=== PATIENT | female | born 1995 | race Caucasian/White ===

== ENCOUNTER → 2018-01-06 11:38 | Outpatient (CLI) | payer MEDICAID, SELFPAY ==
[2018-01-11 12:07] LABS: AFP MoM Value 0.95 (.); AFP Value-EIA 38.2 ng/mL (.); Comment Report (.); DIA MoM Value 1.74 (.); DIA Value-EIA 280.83 pg/mL (.); DSR (By Age) 1060 (.); DSR (Second Trimester) 1668 (.); Gestational Age 17.9 WEEKS (.); Insulin Dep Diabetes No (.); Maternal Age At EDD 24.3 yr (.); hCG MoM 1.08 (.); hCG Value 28579 mIU/mL (.)
== END ==
PROVIDERS: PCP Family Medicine; Visit Provider Obstetrics & Gynecology
DX: Z36.9 Encounter for antenatal screening, unspecified (principal)
CPT/HCPCS: 36415; 82105; 82677; 84702; 86336

== ENCOUNTER → 2018-02-03 11:50 | Outpatient (CLI) | payer MEDICAID, SELFPAY ==
[2018-02-03 12:19] LABS: Absolute Lymphocyte Count 2.08 X10^3/ul (0.83-4.51); Absolute Neutrophil Count 10.6 X10^3/uL (2.0-7.7); Basophil# 0.02 X10^3/uL; Basophil% 0.1 % (0-1); Eosinophil# 0.11 X10^3/uL; Eosinophils% 0.8 % (0-5); Hematocrit 37.1 % (37-47); Hemoglobin 12.1 g/dl (12.0-15.0); Lymphocyte # 2.08 X10^3/ul (4.0); Lymphocyte % 14.7 % (19-41); Mean Corp Hgb Conc 32.6 g/gl (32-36); Mean Corpuscular Hgb 28.7 pg (27.0-32.0); Mean Corpuscular Volume 87.9 fL (81-99); Mean Platelet Vol. 10.8 fl (6.2-12.0); Monocyte% 7.8 % (0-10); Neutrophil # 10.59 X10^3/uL (2.7-7.7); Neutrophil % 74.7 % (47-70); Platelet Count 210 K/mm3 (150-450); RBC Distribution Width CV 13.8 % (11.6-14.6); RBC Distribution Width SD 42.8 fl (35.1-43.9); Red Blood Count 4.22 M/mm3 (4.2-5.4); White Blood Count 14.2 K/mm3 (4.4-11.0)
[2018-02-03 12:20] LABS: POSITIVE COUNT NO; POSITIVE DIFFERENTIAL NO; POSITIVE MORPHOLOGY NO
[2018-02-03 13:32] LABS: HIV - WCH Non-Reactive (Nonreactive); Rubella IgG 34.6 IU/mL
[2018-02-03 18:13] LABS: Amphetamine Urine VISTA NEGATIVE (<1000 ng/mL); Barbiturate Urine VISTA NEGATIVE (< 200 ng/mL); Benzodiazepine Urine VISTA NEGATIVE (< 200 ng/mL); Cocaine Urine VISTA NEGATIVE (< 300 ng/mL); Ecstacy Urine VISTA NEGATIVE (< 500 ng/mL); Methadone Urine VISTA NEGATIVE (< 300 ng/mL); PCP Urine VISTA NEGATIVE (< 25 ng/mL); THC Urine VISTA NEGATIVE (< 50 ng/mL); Vista UDS pH Range 5
[2018-02-05 04:13] LABS: Rapid Plasmin Reagin (RPR) NONREACTIVE (NONREACTIVE)
[2018-02-05 15:15] LABS: HEPATITIS B SURFACE AG Negative (Negative)
== END ==
PROVIDERS: Family Provider Family Medicine; PCP Family Medicine; Referring Provider Obstetrics & Gynecology; Visit Provider Obstetrics & Gynecology
DX: O34.219 Maternal care for unspecified type scar from previous cesarean delivery (principal); O99.340 Other mental disorders complicating pregnancy, unspecified trimester; F12.90 Cannabis use, unspecified, uncomplicated; O99.330 Smoking (tobacco) complicating pregnancy, unspecified trimester; F31.9 Bipolar disorder, unspecified
CPT/HCPCS: 36415; 80307; 85025; 86592; 86703; 86762; 86850; 86900; 87340

== ENCOUNTER → 2018-03-08 10:16 | Outpatient (CLI) | payer MEDICAID, SELFPAY ==
[2018-03-08 10:00] VITALS: BMI 31.2
[2018-03-08 11:08] LABS: Absolute Lymphocyte Count 1.73 X10^3/ul (0.83-4.51); Absolute Neutrophil Count 10.2 X10^3/uL (2.0-7.7); Basophil# 0.03 X10^3/uL; Basophil% 0.2 % (0-1); Eosinophil# 0.13 X10^3/uL; Hematocrit 34.8 % (37-47); Hemoglobin 11.4 g/dl (12.0-15.0); Lymphocyte # 1.73 X10^3/ul (4.0); Lymphocyte % 13.1 % (19-41); Mean Corp Hgb Conc 32.8 g/gl (32-36); Mean Corpuscular Hgb 28.5 pg (27.0-32.0); Mean Platelet Vol. 10.2 fl (6.2-12.0); Monocyte% 6.8 % (0-10); Neutrophil # 10.17 X10^3/uL (2.7-7.7); Neutrophil % 77.2 % (47-70); Platelet Count 176 K/mm3 (150-450); RBC Distribution Width CV 14.4 % (11.6-14.6); RBC Distribution Width SD 45.6 fl (35.1-43.9); White Blood Count 13.2 K/mm3 (4.4-11.0)
[2018-03-08 11:14] LABS: POSITIVE COUNT NO; POSITIVE DIFFERENTIAL NO; POSITIVE MORPHOLOGY NO
[2018-03-08 11:17] LABS: Glucose Challenge Gest 1H 50g 125 mg/dL (70-140)
== END ==
PROVIDERS: Nurse Practitioner Women's Health; Family Provider Family Medicine; PCP Family Medicine; Referring Provider Obstetrics & Gynecology; Visit Provider Obstetrics & Gynecology
DX: Z34.90 Encounter for supervision of normal pregnancy, unspecified, unspecified trimester (principal)
CPT/HCPCS: 36415; 82950; 85025; 87086; 87088

== ENCOUNTER → 2018-04-01 17:47 | Outpatient (CLI) | payer MEDICAID, SELFPAY ==
[2018-04-01 08:32] VITALS: BMI 31.2
[2018-04-01 18:08] LABS: Amphetamine Urine VISTA NEGATIVE (<1000 ng/mL); Barbiturate Urine VISTA NEGATIVE (< 200 ng/mL); Benzodiazepine Urine VISTA NEGATIVE (< 200 ng/mL); Cocaine Urine VISTA NEGATIVE (< 300 ng/mL); Ecstacy Urine VISTA NEGATIVE (< 500 ng/mL); Methadone Urine VISTA NEGATIVE (< 300 ng/mL); PCP Urine VISTA NEGATIVE (< 25 ng/mL); THC Urine VISTA NEGATIVE (< 50 ng/mL); Vista UDS pH Range 7
== END ==
PROVIDERS: Family Provider Family Medicine; PCP Family Medicine; Referring Provider Nurse Practitioner Women's Health; Visit Provider Nurse Practitioner Women's Health
DX: F12.90 Cannabis use, unspecified, uncomplicated (principal)
CPT/HCPCS: 80307

== ENCOUNTER 2018-04-15 11:15 | Outpatient (CLI) | payer MEDICAID, SELFPAY ==
[2018-04-01 08:32] VITALS: BMI 31.2
[2018-04-15 11:36] VITALS: BMI 32.0
[2018-04-15 11:37] LABS: ROM Internal Control Test YES-OK TO RESULT pt. (Internal QC)
[2018-04-15 11:57] LABS: ROM Patient Test Negative (Negative)
--- NOTE | 2018-04-22 03:45 | OB.TRI.NOTE ---
- Problem List (1) False labor Status: Acute History of Present Illness Date of Service: 04/15/18 Was patient seen by the physician?: No Reason For Visit: R/O PRE MATURE ROM Date of Service: 04/15/18 History of Present Illness: co ctx and possible lof Allergies acetaminophen [From Percocet] Allergy (Mild, Verified 04/20/18 23:33) Other amoxicillin [From Trimox] Allergy (Mild, Verified 04/20/18 23:33) Other cyclobenzaprine Allergy (Mild, Verified 04/20/18 23:33) Other oxycodone [From Percocet] Allergy (Mild, Verified 04/20/18 23:33) Other Sulfa (Sulfonamide Antibiotics) Allergy (Mild, Verified 04/20/18 23:33) Other - Pertinent Past Medical History Medical History: Past Medical History (Last Reviewed 04/16/18 @ 09:25 by Delma Lord) Anxiety and depression Bipolar disorder Surgical History: Past Surgical History (Last Reviewed 04/16/18 @ 09:25 by Delma Lord) delivery delivered H/O dilation and curettage H/O endoscopy Hx of cholecystectomy Ingrown toenail Laboratory Studies: Laboratory Tests 04/15/18 Range/Units 11:32 Vag Amniotic Fld Detect Negative (Negative) NST - FHR Rate Baby A Baseline: 140 Variability:: Moderate Accelerations:: 15 x 15 Decelerations:: None NST Reactive:: Yes FHR Category:: Category I Uterine Activity:: no regular Impression/Plan false labor dc home labor precautions cat I tracing
== END 2018-04-15 12:25 | disposition home or self-care (01) ==
LOC: WPOUT 11:22 → WP 11:23
PROVIDERS: Family Provider Family Medicine; PCP Family Medicine; Referring Provider Obstetrics & Gynecology; Visit Provider Obstetrics & Gynecology
DX: O47.9 False labor, unspecified (principal); Z90.49 Acquired absence of other specified parts of digestive tract; Z3A.00 Weeks of gestation of pregnancy not specified
CPT/HCPCS: 59025; 59050; 84112; 99218; G0378

== ENCOUNTER → 2018-04-16 12:42 | Outpatient (CLI) | payer MEDICAID, SELFPAY ==
[2018-04-16 09:58] VITALS: BMI 32.0
[2018-04-16 13:21] LABS: Amphetamine Urine VISTA NEGATIVE (<1000 ng/mL); Barbiturate Urine VISTA NEGATIVE (< 200 ng/mL); Benzodiazepine Urine VISTA NEGATIVE (< 200 ng/mL); Cocaine Urine VISTA NEGATIVE (< 300 ng/mL); Ecstacy Urine VISTA NEGATIVE (< 500 ng/mL); Methadone Urine VISTA NEGATIVE (< 300 ng/mL); PCP Urine VISTA NEGATIVE (< 25 ng/mL); THC Urine VISTA NEGATIVE (< 50 ng/mL); Vista UDS pH Range 6
== END ==
PROVIDERS: Family Provider Family Medicine; PCP Family Medicine; Referring Provider Obstetrics & Gynecology; Visit Provider Obstetrics & Gynecology
DX: O09.70 Supervision of high risk pregnancy due to social problems, unspecified trimester (principal); O99.330 Smoking (tobacco) complicating pregnancy, unspecified trimester; F12.90 Cannabis use, unspecified, uncomplicated; Z3A.00 Weeks of gestation of pregnancy not specified
CPT/HCPCS: 80307

== ENCOUNTER 2018-04-20 22:34 | Outpatient (CLI) | payer MEDICAID, SELFPAY ==
[2018-04-16 09:58] VITALS: BMI 32.0
[2018-04-20 23:35] VITALS: BMI 31.7
[2018-04-21 00:05] LABS: Amphetamine Urine VISTA NEGATIVE (<1000 ng/mL); Barbiturate Urine VISTA NEGATIVE (< 200 ng/mL); Benzodiazepine Urine VISTA NEGATIVE (< 200 ng/mL); Cocaine Urine VISTA NEGATIVE (< 300 ng/mL); Ecstacy Urine VISTA NEGATIVE (< 500 ng/mL); Methadone Urine VISTA NEGATIVE (< 300 ng/mL); PCP Urine VISTA NEGATIVE (< 25 ng/mL); THC Urine VISTA NEGATIVE (< 50 ng/mL); Vista UDS pH Range 6
[2018-04-21 00:21] LABS: Hematocrit 32.5 % (37-47); Hemoglobin 10.5 g/dl (12.0-15.0); Mean Corp Hgb Conc 32.3 g/gl (32-36); Mean Corpuscular Volume 86.7 fL (81-99); Mean Platelet Vol. 11.2 fl (6.2-12.0); Platelet Count 149 K/mm3 (150-450); RBC Distribution Width CV 14.9 % (11.6-14.6); RBC Distribution Width SD 46.8 fl (35.1-43.9); Red Blood Count 3.75 M/mm3 (4.2-5.4); White Blood Count 13.9 K/mm3 (4.4-11.0)
[2018-04-21 00:37] LABS: Fibrinogen 472 mg/dl (203-444)
[2018-04-21 00:39] LABS: Differential Indicated MANUAL DIFF; POSITIVE COUNT YES; POSITIVE DIFFERENTIAL NO; POSITIVE MORPHOLOGY YES
--- NOTE | 2018-04-21 00:52 | NURSING ---
Patient states she has been taking tylenol for her headache she has had since Apr 15. She has been evaluated multiple times. She states that she does get relief with tylenol. Dr Schwarz updated on patient medical screening score, BP 90/50, vaginal exam, nudfsyarpg=270, Plt 149, no clonus present. Discharge orders recieved via TOR[facility]. Dr Schwarz ok with patient leaving after being evaluated by ER doctor in [place].
[2018-04-21 01:18] LABS: Lymphocyte 19 % (19-41); Monocyte 13 % (0-10); Neutrophil-Band 1 % (0-5); Neutrophil-Segmented 67 % (47-70); Total Cells Counted 100 (MANUAL DIFF)
[2018-04-21 01:23] LABS: Absolute Lymphocyte Count 3.68 X10^3/ul (0.83-4.51); Absolute Neutrophil Count 9.5 X10^3/uL (2.0-7.7); Anisocytosis RARE; Platelet Estimate ADEQUATE (ADEQ)
[2018-04-21 14:29] LABS: Pathologist Review Reviewed
--- NOTE | 2018-04-22 03:44 | OB.TRI.NOTE ---
- Problem List (1) False labor Status: Acute History of Present Illness Date of Service: 04/20/18 Reason For Visit: RULE OUT LABOR History of Present Illness: co ctx Allergies acetaminophen [From Percocet] Allergy (Mild, Verified 04/20/18 23:33) Other amoxicillin [From Trimox] Allergy (Mild, Verified 04/20/18 23:33) Other cyclobenzaprine Allergy (Mild, Verified 04/20/18 23:33) Other oxycodone [From Percocet] Allergy (Mild, Verified 04/20/18 23:33) Other Sulfa (Sulfonamide Antibiotics) Allergy (Mild, Verified 04/20/18 23:33) Other - Pertinent Past Medical History Medical History: Past Medical History (Last Reviewed 04/16/18 @ 09:25 by Delma Lord) Anxiety and depression Bipolar disorder Surgical History: Past Surgical History (Last Reviewed 04/16/18 @ 09:25 by Delma Lord) delivery delivered H/O dilation and curettage H/O endoscopy Hx of cholecystectomy Ingrown toenail Laboratory Studies: Laboratory Tests 04/20/18 04/20/18 04/20/18 Range/Units 23:20 23:20 23:20 WBC 13.9 H (4.4-11.0) K/mm3 RBC 3.75 L (4.2-5.4) M/mm3 Hgb 10.5 L (12.0-15.0) g/dl Hct 32.5 L (37-47) % MCV 86.7 (81-99) fL MCH 28.0 (27.0-32.0) pg MCHC 32.3 (32-36) g/gl RDW 14.9 H (11.6-14.6) % RDW Differential 46.8 H (35.1-43.9) fl Plt Count 149 L (150-450) K/mm3 MPV 11.2 (6.2-12.0) fl Neut % (Auto) Not Reportable Absolute Neuts (auto) 9.5 H (2.0-7.7) X10^3/uL Absolute Lymphs (auto) 3.68 (0.83-4.51) X10^3/ul Total Counted 100 (MANUAL DIFF) Neutrophils % (Manual) 67 (47-70) % Band Neutrophils % 1 (0-5) % Lymphocytes % (Manual) 19 (19-41) % Monocytes % (Manual) 13 H (0-10) % Diff Path Review Reviewed Platelet Estimate ADEQUATE (ADEQ) Anisocytosis RARE Fibrinogen 472 H (203-444) mg/dl Urine Opiates Screen NEGATIVE (< 300 ng/mL) Urine Methadone Screen NEGATIVE (< 300 ng/mL) Ur Barbiturates Screen NEGATIVE (< 200 ng/mL) Ur Phencyclidine Scrn NEGATIVE (< 25 ng/mL) Ur Amphetamines Screen NEGATIVE (<1000 ng/mL) U Methamphetamin-MDMA NEGATIVE (< 500 ng/mL) U Benzodiazepines Scrn NEGATIVE (< 200 ng/mL) Urine Cocaine Screen NEGATIVE (< 300 ng/mL) U Cannabinoids Screen NEGATIVE (< 50 ng/mL) Ur Drug Screen Comment NST - FHR Rate Baby A Baseline: 140 Variability:: Moderate Accelerations:: 15 x 15 Decelerations:: None NST Reactive:: Yes FHR Category:: Category I Uterine Activity:: irregular ctx Impression/Plan false labor dc home labor precautions cat I tracing
== END 2018-04-21 01:05 | disposition home or self-care (01) ==
LOC: WPOUT 22:42 → WP 22:43
PROVIDERS: Family Provider Family Medicine; PCP Family Medicine; Referring Provider Obstetrics & Gynecology; Visit Provider Obstetrics & Gynecology
DX: O47.9 False labor, unspecified (principal); O34.219 Maternal care for unspecified type scar from previous cesarean delivery; Z3A.00 Weeks of gestation of pregnancy not specified; Z90.49 Acquired absence of other specified parts of digestive tract
CPT/HCPCS: 59025; 59050; 80307; 85025; 85384; 99218; G0378

== ENCOUNTER → 2018-05-03 17:37 | Outpatient (CLI) | payer MEDICAID, SELFPAY ==
[2018-05-03 11:09] VITALS: BMI 32.1
--- OUTSIDE RECORDS SUMMARY | 2018-07-06 05:13 | XMS RPT_ITS ---
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 ng/mL) Not Detected LAB 0764I Buprenorphine (cutoff 5 ng/mL) Not Detected LAB 0765A Norbuprenorphine (cutoff 20 ng/mL) Not Detected LAB 0765B Fentanyl (cutoff 2 ng/mL) Not Detected LAB 0765C Norfentanyl (cutoff 2 ng/mL) Not Detected LAB 0765D Meperidine metabolite (cutoff 50 ng/mL) Not Detected LAB 0765E Tapentadol (cutoff 100 ng/mL) Not Detected LAB 0765F Widoidwhah-s-Rusj (cutoff 200 ng/mL) Not Detected LAB 0765H Methadone (cutoff 150 ng/mL) Not Detected LAB 0765I Propoxyphene (cutoff 300 ng/mL) Not Detected LAB 0766J Tramadol (cutoff 200 ng/mL) Not Detected LAB 0766B Amphetamine (cutoff 100 ng/mL) Not Detected LAB 0766C Methamphetamine (cutoff 400 ng/mL) Not Detected LAB 0766D MDMA-Ecstasy (cutoff 200 ng/mL) Not Detected LAB 0766E MDA (cutoff 200 ng/mL) Not Detected LAB 0766F MDEA-Nicki (cutoff 200 ng/mL) Not Detected LAB A328A Methylphenidate (cutoff 100 ng/mL) Not Detected LAB 0766H Phentermine (cutoff 100 ng/mL) Not Detected LAB 0767J Benzoylecgonine (cutoff 150 ng/mL) Not Detected LAB 0767B Alprazolam (cutoff 40 ng/mL) Not Detected LAB 0767C Rjaff-XW-Fypybrydgl (cutoff 20 ng/mL) Not Detected LAB 0767D Clonazepam (cutoff 20 ng/mL) Not Detected LAB 0767E 7-Aminoclonazepam (cutoff 40 ng/mL) Not Detected LAB 0767F Diazepam (cutoff 50 ng/mL) Not Detected LAB 0767G Nordiazepam (cutoff 50 ng/mL) Not Detected LAB 0767H Oxazepam (cutoff 50 ng/mL) Not Detected LAB 0767I Temazepam (cutoff 50 ng/mL) Not Detected LAB 0768J Lorazepam (cutoff 60 ng/mL) Not Detected LAB 0768A Midazolam (cutoff 20 ng/mL) Not Detected LAB 0768B Zolpidem (cutoff 20 ng/mL) Not Detected LAB 0768D Barbiturates (cutoff 200 ng/mL) Not Detected LAB 0768G Ethyl Glucuronide (cutoff 500 ng/mL) Not Detected LAB 0768H Marijuana Metabolite (cutoff 20 ng/mL) Present LAB 0768I PCP (cutoff 25 ng/mL) Not Detected LAB 0769J Carisoprodol (cutoff 100 ng/mL) Not Detected Result Comment: The carisoprodol immunoassay has cross-reactivity to carisoprodol and meprobamate. LAB 0769A Pain Management Drug Panel See Below Result Comment: Methodology: Qualitative Enzyme Immunoassay and Qualitative Liquid Chromatography-Time of Flight-Mass Spectrometry or Tandem Mass Spectrometry, Quantitative Spectrophotometry The absence of expected drug(s) and/or drug metabolite(s) may indicate non-compliance, inappropriate timing of specimen collection relative to drug administration, poor drug absorption, diluted/adulterated urine, or limitations of testing. The concentration must be greater than or equal to the cutoff to be reported as present. If specific drug concentrations are required, contact the laboratory within two weeks of specimen collection to request quantification by a second analytical technique. Interpretive questions should be directed to the laboratory. Results based on immunoassay detection that do not match clinical expectations should be interpreted with caution. Confirmatory testing by mass spectrometry for immunoassay-based results is available, if ordered within two weeks of specimen collection. Additional charges apply. For medical purposes only; not valid for forensic use. This test was developed and its performance characteristics determined by [employer]. The U.S. Food and Drug Administration has not approved or cleared this test; however, FDA clearance or approval is not currently required for clinical use. The results are not intended to be used as the sole means for clinical diagnosis or patient management decisions. LAB 0831B EER Pain Mgt Drug Panel See Note High Res/EMIT U Result Comment: Access [employer] Enhanced Report using either link below: -Direct access: [email or web address] -Enter Username, Password: [email or web address] Username: [email or web address] Password: [email or web address] Performed by [employer], [address] [place] [id number] [email or web address], Mikey Rodrigues MD - Lab. Director LAB 9038F 20.0-400.0 mg/dL Creatinine, Urine 194.7 Observed: 11/17/2017 Status: F Source: [facility] CULTURE, URINE 2:48 PM [facility] CENTER REPOSITORY ORDERED BY: SHEFALI HENRIQUEZ SOURCE: Urine Clean Catch COLLECTED: 11/17/17 14:48 ANTIBIOTICS AT BON.: RECEIVED : 11/17/17 16:51 Culture, Urine FINAL 11/19/17 10:52 No growth 24 hours NON-INVASIVE Collected: 11/17/2017 Status: F Source: [facility] TESTING FOR 2:26 PM [facility] REPOSITORY TYPE CODE TESTS RESULT OUT OF REFERENCE UNITS RANGE LAB A000B Maternal Weight (Pounds) 160 LAB 0926J Gestational Age (Weeks) 10 LAB A000C Gestational Age (Days) 6 LAB 0843A Report Fetus Gender yes Result Comment: Corrected result; previously reported as yes on 11/17/2017 at 14:26 by V/AUT LAB 0838A Trisomy 21 Low risk LAB 0838B Trisomy 18 Low risk LAB 0838C Trisomy 13 Low risk LAB 0838F Monosomy X Low risk LAB 0883J Low Triploidy/Vanishi risk ng Twin LAB A000D Fetus Gender Female LAB 0843J 10.3 Fraction LAB 0925I Result Low Summary risk Result Comment: This is a screening test, and is NOT diagnostic for the conditions listed in this report. Both false positive and false negative results may occur. Based on maternal age, gestational age, and the analysis of the circulating cell-free DNA, the risk that this fetus has any of the conditions listed in this report is LOW. If clinical findings conflict with these test results, appropriate clinical follow-up should be performed. This may include genetic counseling, ultrasound, amniocentesis, CVS or other testing as recommended by the patient's healthcare provider. TEST INFORMATION: Non-Invasive Testing for Aneuploidy (Powered by [employer]) with or without Microdeletions METHODOLOGY: DNA isolated from the maternal blood, which contains placental DNA, is amplified at 13,300+ loci using a targeted PCR assay and sequenced using a high-throughput sequencer. Sequence data are analyzed using [employer] software to estimate the copy number and identify whole chromosome abnormalities for chromosomes 13, 18, 21, X, and Y as well as sex. Barring QC failures and fractions below the performance limits of the algorithm, the minimum confidence threshold is 0.98 for a high risk call. For both low risk and high risk calls, the majority of specimens will have a confidence of >0.99 across all regions tested. If a sample fails to meet the quality threshold, no result will be reported for one or more chromosomes. Microdeletions: An additional 6,600+ loci are amplified to estimate the copy numbers of chromosomal regions attributed to 22q11.2, Prader-Willi, Angelman, Cri-du-chat, and 1p36 deletion syndromes. For any of the microdeletions, the minimum confidence threshold is 0.95 for a High Risk call. Under specific circumstances, the algorithm may return a result of unchanged which is equivalent to the population frequency of that microdeletion. SENSITIVITY AND SPECIFICITY: For combined autosomal aneuploidies and Zayas's syndrome, sensitivity and specificity are >99 percent. For combined microdeletions, sensitivity is >99 percent, specificity is >94 percent. sex has a sensitivity and specificity of >99 percent. Sex chromosome trisomies, if identified, will be reported with a specificity of 98 percent. DISCLAIMER: Risks for aneuploidy are calculated based on maternal age, gestational age and test results. Risks for microdeletions are based on population frequency and test results. This test will not identify all deletions associated with each disorder. Ability to detect deletions will be based on size and location. Findings of unknown significance will not be reported. Cases with evidence of and/or placental mosaicism will not be reported. As this assay is a screening test and not diagnostic, false positive and false negatives can occur. Positive test results need diagnostic confirmation by alternative testing methods. Negative results do not fully exclude the diagnosis of any of the above syndromes. False positive and false negative results may be due to placental, or maternal mosaicism, small imbalances, point mutations, gene inactivation, haploblocks, or other genetic/epigenetic mechanisms. Other potential sources of error include, but are not limited to, DNA sample contamination or degradation, limitations of current diagnostic techniques, misidentification of samples, or other factors that may interfere with correct interpretation of the analysis. This test has the potential to uncover consanguinity in the family. This test is not intended to identify pregnancies at risk for open neural tube defects. This test was developed and its performance characteristics determined by [employer]. The U.S. Food and Drug Administration has not approved or cleared this test; however, FDA clearance or approval is not currently required for clinical use. The results are not intended to be used as the sole means for clinical diagnosis or patient management decisions. SOFTWARE VERSION: [employer] 2.2 ABBREVIATIONS: T21 (trisomy 21); T18 (trisomy 18); T13 (trisomy 13); Trip (triploidy or vanishing twin); 45,X (monosomy X); XXX (trisomy X) ; XXY (Klinefelter syndrome); XYY (XYY syndrome); 22q (22q11.2 deletion syndrome); 1p36 (1p36 deletion syndrome); (Angelman syndrome); 5p- (Cri-du-chat syndrome); PWS (Prader-Willi syndrome) LAB [facility] EER Non-Invasive , Aneuploidy See Note Result Comment: Access [employer] Enhanced Report using either link below: -Direct access: [email or web address] -Enter Username, Password: [email or web address] Username: [email or web address] Password: [email or web address] This result has been reviewed and approved by Grace Kebede MD, PhD, FACMG. Performed by [facility], [address] [place] [id number] [email or web address], Mikey Rodrigues MD - Lab. Director CODING SUMMARY Observed: 11/10/2017 Status: F Source: [facility] 12:11 PM HOSPITAL REPOSITORY CODING DATE: 11/10/2017 [facility] STATUS: Home PAYOR: Medicaid HMO ADMIT DX: REASON FOR VISIT DX: M54.9 Dorsalgia, unspecified FINAL DX: PRINCIPAL: O9A.211 Injury, poisoning and certain other consequences of external causes complicating , first trimester SECONDARY: S29.012A Strain of muscle and tendon of back wall of thorax, initial encounter Z3A.01 Less than 8 weeks gestation of PROCEDURES DOCTOR NAME DATE NOTE: The code number assigned matches the documented diagnosis and / or procedure in the patient's chart. However, the narrative phrase printed from the coding software may appear abbreviated, or result in slightly different terminology. Coded By: Estefania Escobedo Date Saved: 11/10/2017 12:11 pm CODING SUMMARY Observed: 11/10/2017 Status: F Source: [facility] 12:10 PM HOSPITAL REPOSITORY CODING DATE: 11/10/2017 [facility] STATUS: Home PAYOR: Medicaid HMO ADMIT DX: REASON FOR VISIT DX: M54.9 Dorsalgia, unspecified FINAL DX: PRINCIPAL: O9A.211 Injury, poisoning and certain other consequences of external causes complicating , first trimester SECONDARY: S29.012A Strain of muscle and tendon of back wall of thorax, initial encounter Z3A.01 Less than 8 weeks gestation of PROCEDURES DOCTOR NAME DATE NOTE: The code number assigned matches the documented diagnosis and / or procedure in the patient's chart. However, the narrative phrase printed from the coding software may appear abbreviated, or result in slightly different terminology. Coded By: Estefania Escobedo Date Saved: 11/10/2017 12:10 pm CODING SUMMARY Observed: 10/28/2017 Status: F Source: [facility] 1:44 PM HOSPITAL REPOSITORY CODING DATE: 10/28/2017 [facility] STATUS: Home PAYOR: Medicaid HMO ADMIT DX: REASON FOR VISIT DX: O36.80X0 with inconclusive viability, not applicable or unspecified FINAL DX: PRINCIPAL: O36.80X0 with inconclusive viability, not applicable or unspecified SECONDARY: Z87.59 Personal history of other complications of , childbirth and the puerperium PROCEDURES DOCTOR NAME DATE NOTE: The code number assigned matches the documented diagnosis and / or procedure in the patient's chart. However, the narrative phrase printed from the coding software may appear abbreviated, or result in slightly different terminology. Coded By: Pam Wesley Date Saved: 10/28/2017 01:44 pm PROVIDER ORDERS Observed: 10/22/2017 Status: P Source: [facility] 11:59 PM HOSPITAL REPOSITORY [id number] US 1ST Observed: 10/22/2017 Status: F Source: [facility] 10:13 AM HOSPITAL REPOSITORY ULTRASOUND FIRST TRIMESTER CLINICAL DATA: evaluation ultrasound study was performed with transabdominal and transvaginal imaging. The maternal uterus measures 13.7 x 8.6 x 5.7 cm in greatest longitudinal, transverse and AP dimensions. Within the endometrial canal there is a gestational sac containing yolk sac and pole. The findings are compatible with a single live intrauterine gestation approximately 7 weeks 1 day age according to crown-rump length and 6 weeks 3 days age according to gestational sac size. cardiac motion is identified, approximately 136 beats per minute. There is noted a small sonolucency measuring 0.6 x 0.5 x 0.4 cm within the maternal cervical canal, compatible with a Nabothian cyst. Views of the maternal adnexal regions demonstrate 2.8 x 2.6 x 2.3 cm sonolucency in the right adnexal region compatible with a corpus luteal cyst. IMPRESSION: 1. FINDINGS COMPATIBLE WITH A SINGLE LIVE INTRAUTERINE GESTATION APPROXIMATELY 7 WEEKS 1 DAY AGE ACCORDING TO CROWN-RUMP LENGTH AND 6 WEEKS 3 DAYS AGE ACCORDING TO GESTATIONAL SAC SIZE. 2. FINDINGS COMPATIBLE WITH A CORPUS LUTEAL CYST IN THE MATERNAL RIGHT ADNEXAL REGION. 3. SMALL NABOTHIAN CYST WITHIN THE MATERNAL CERVICAL CANAL. Nestor Mario MD JOB #: [id number] bk Final Dictated by: Fabiano HIRSCH, Nestor Connors Dictated DT/TM: 10/22/17 12:44 Signed (Electronic Signature): Fabiano HIRSCH, Nestor Connors 10/22/17 1:56 pm Technologist: SHRUTI FELIX PATIENT EDUCATION Observed: 10/20/2017 Status: C Source: [facility] NOTE 5:01 PM HOSPITAL REPOSITORY [employer] Obstetrics and Gynecology Back Pain in Back pain during is common. Back pain may be caused by several factors that are related to changes during your . Follow these instructions at home: Managing pain, stiffness, and swelling ? If directed, apply ice for sudden (acute) back pain. ? Put ice in a plastic bag. ? Place a towel between your skin and the bag. ? Leave the ice on for 20 minutes, 2?3 times per day. ? If directed, apply heat to the affected area before you exercise: ? Place a towel between your skin and the heat pack or heating pad. ? Leave the heat on for 20?30 minutes. ? Remove the heat if your skin turns bright red. This is especially important if you are unable to feel pain, heat, or cold. You may have a greater risk of getting burned. Activity ? Exercise as told by your health care provider. Exercising is the best way to prevent or manage back pain. ? Listen to your body when lifting. If lifting hurts, ask for help or bend your knees. This uses your leg muscles instead of your back muscles. ? Squat down when picking up something from the floor. Do not bend over. ? Only use bed rest as told by your health care provider. Bed rest should only be used for the most severe episodes of back pain. Standing, Sitting, and Lying Down ? Do not belting cutter one place for long periods of time. ? Use good posture when sitting. Make sure your head rests over your shoulders and is not hanging forward. Use a pillow on your lower back if necessary. ? Try sleeping on your side, preferably the left side, with a pillow or two between your legs. If you are sore after a night's rest, your bed may be too soft. A firm mattress may provide more support fo r your back during . General instructions ? Do not wear high heels. ? Eat a healthy diet. Try to gain weight within your health care provider's recommendations. ? Use a maternity girdle, elastic sling, or back brace as told by your health care provider. ? Take foul-bcw-atxpfaa and prescription medicines only as told by your health care provider. ? Keep all follow-up visits as told by your health care provider. This is important. This includes any visits with any specialists, such as a physical therapist. Contact a health care provider if: ? Your back pain interferes with your daily activities. ? You have increasing pain in other parts of your body. Get help right away if: ? You develop numbness, tingling, weakness, or problems with the use of your arms or legs. ? You develop severe back pain that is not controlled with medicine. ? You have a sudden change in bowel or bladder control. ? You develop shortness of breath, dizziness, or you faint. ? You develop nausea, vomiting, or sweating. ? You have back pain that is a rhythmic, cramping pain similar to labor pains. Labor pain is usually 1?2 minutes apart, lasts for about 1 minute, and involves a bearing down feeling or pressure in your pelvis. ? You have back pain and your water breaks or you have vaginal bleeding. ? You have back pain or numbness that travels down your leg. ? Your back pain developed after you fell. ? You develop pain on one side of your back. ? You see blood in your urine. ? You develop skin blisters in the area of your back pain. This information is not intended to replace advice given to you by your health care provider. Make sure you discuss any questions you have with your health care provider. Document Released: 07/08/2006 Document Revised: 09/04/2016 Document Reviewed: 12/12/2015 [employer] Patient Education ? 2018 [employer] Orthopedics Back Pain, Adult Back pain is very common in adults.?The cause of back pain is rarely dangerous and the pain often gets better over time.?The cause of your back pain may not be known. Some common causes of back pain include: ? Strain of the muscles or ligaments supporting the spine. ? Wear and tear (degeneration) of the spinal disks. ? Arthritis. ? Direct injury to the back. For many people, back pain may return. Since back pain is rarely dangerous, most people can learn to manage this condition on their own. Follow these instructions at home: Watch your back pain for any changes. The following actions may help to lessen any discomfort you are feeling: ? Remain active. It is stressful on your back to sit or belting cutter one place for long periods of time. Do not sit, drive, or belting cutter one place for more than 30 minutes at a time. Take short walks on even surfaces as soon as you are able.?Try to increase the length of time you walk each day. ? Exercise regularly as directed by your health care provider. Exercise helps your back heal faster. It also helps avoid future injury by keeping your muscles strong and flexible. ? Do not stay in bed.?Resting more than 1?2 days can delay your recovery. ? Pay attention to your body when you bend and lift. The most comfortable positions are those that put less stress on your recovering back. Always use proper lifting techniques, including: ? Bending your knees. ? Keeping the load close to your body. ? Avoiding twisting. ? Find a comfortable position to sleep. Use a firm mattress and lie on your side with your knees slightly bent. If you lie on your back, put a pillow under your knees. ? Avoid feeling anxious or stressed.?Stress increases muscle tension and can worsen back pain.?It is important to recognize when you are anxious or stressed and learn ways to manage it, such as with exercise. ? Take medicines only as directed by your health care provider. Ceva-tme-cevwzqp medicines to reduce pain and inflammation are often the most helpful.?Your health care provider may prescribe muscle rela xant drugs.?These medicines help dull your pain so you can more quickly return to your normal activities and healthy exercise. ? Apply ice to the injured area: ? Put ice in a plastic bag. ? Place a towel between your skin and the bag. ? Leave the ice on for 20 minutes, 2?3 times a day for the first 2?3 days. After that, ice and heat may be alternated to reduce pain and spasms. ? Maintain a healthy weight. Excess weight puts extra stress on your back and makes it difficult to maintain good posture. Contact a health care provider if: ? You have pain that is not relieved with rest or medicine. ? You have increasing pain going down into the legs or buttocks. ? You have pain that does not improve in one week. ? You have night pain. ? You lose weight. ? You have a fever or chills. Get help right away if: ? You develop new bowel or bladder control problems. ? You have unusual weakness or numbness in your arms or legs. ? You develop nausea or vomiting. ? You develop abdominal pain. ? You feel faint. This information is not intended to replace advice given to you by your health care provider. Make sure you discuss any questions you have with your health care provider. Document Released: 03/30/2006 Document Revised: 08/07/2016 Document Reviewed: 08/01/2014 [employer] Interactive Patient Education ? 2017 [employer] Muscle Strain A muscle strain is an injury that occurs when a muscle is stretched beyond its normal length. Usually a small number of muscle fibers are torn when this happens. Muscle strain is rated in degrees. First -degree strains have the least amount of muscle fiber tearing and pain. Second-degree and third-degree strains have increasingly more tearing and pain. Usually, recovery from muscle strain takes 1?2 weeks. Complete healing takes 5?6 weeks. What are the causes? Muscle strain happens when a sudden, violent force placed on a muscle stretches it too far. This may occur with lifting, sports, or a fall. What increases the risk? Muscle strain is especially common in athletes. What are the signs or symptoms? At the site of the muscle strain, there may be: ? Pain. ? Bruising. ? Swelling. ? Difficulty using the muscle due to pain or lack of normal function. How is this diagnosed? Your health care provider will perform a physical exam and ask about your medical history. How is this treated? Often, the best treatment for a muscle strain is resting, icing, and applying cold compresses to the injured area. Follow these instructions at home: ? Use the CUTLER method of treatment to promote muscle healing during the first 2?3 days after your injury. The CUTLER method involves: ? Protecting the muscle from being injured again. ? Restricting your activity and resting the injured body part. ? Icing your injury. To do this, put ice in a plastic bag. Place a towel between your skin and the bag. Then, apply the ice and leave it on from 15?20 minutes each hour. After the third day, switch to moist heat packs. ? Apply compression to the injured area with a splint or elastic bandage. Be careful not to wrap it too tightly. This may interfere with blood circulation or increase swelling. ? Elevate the injured body part above the level of your heart as often as you can. ? Only take llhe-rtw-osmoufy or prescription medicines for pain, discomfort, or fever as directed by your health care provider. ? Warming up prior to exercise helps to prevent future muscle strains. Contact a health care provider if: ? You have increasing pain or swelling in the injured area. ? You have numbness, tingling, or a significant loss of strength in the injured area. This information is not intended to replace advice given to you by your health care provider. Make sure you discuss any questions you have with your health care provider. Document Released: 03/30/2006 Document Revised: 09/04/2016 Document Reviewed: 10/27/2013 [employer] Interactive Patient Education ? 2017 [employer]. ED PATIENT SUMMARY Observed: 10/20/2017 Status: C Source: [facility] 5:01 PM HOSPITAL REPOSITORY [facility] - Emergency Department [address] [place], [place] [id number] PATIENT DISCHARGE INSTRUCTIONS Patient Information Name: KEENAN VENTURA Age: 22 Years Date of : [birth year] Reason For Visit: Rib/trunk pain-swelling; SOB, VOMITING Arrival Time: 10/20/17 15:39:00 Primary Care Physician: Provider, None Attending Physician: Randell Zarate MD Comment: Visit Diagnosis: Diagnoses This Visit Muscle strain of left upper back (S29.012A) Rib/trunk pain-swelling ([id number]) If you received any narcotics, sedation, or any other medication that causes drowsiness for the next 24 hours, unless otherwise directed: ? Do not drive a car. ? Do not operate machinery such as power tools, lawn mowers, drills, sewing machines, or stoves ? Avoid alcoholic beverages and drugs for allergies, nerves, or sleep ? Do not make important personal or business decisions or sign any legal documents With: Address: When: Follow up with primary care provider Within 3 to 5 days Comments: Please follow up with primary care provider in 3-5 days. You were seen today for cc of left upper back pain. You were given tylenol here in the emergency department. you had labs completed which were wi thin normal limits. No urinary tract infection. Keep your appointment for for ultrasound. You may take tylenol as needed for discomfort. Continue to rest, and ice the left upper back. You may a lso try heat for comfort. Please follow up with occasional caregiver in 3-5 days. You may return here to the emergency department for any worsening or concerning symptoms. Medication Information: The exam and treatment you received today in the [facility] Emergency Department were for an urgent problem and are not intended as complete care. It is important for you to follow up with a doctor, nurse practitioner, or physician?s assistant paralegal for ongoing care. If your symptoms become worse or you do not improve as expected and you are unable to reach your usual health care provider, you should return t o the Emergency Department, we are available 24 hours a day. For those patients who have received Radiology results, the interpretation of your X-ray as given to you by our Emergency Department physician is only a preliminary report. The Radiologist will review y our films and if there is a change in the diagnosis you will be notified by phone. Please make sure you have provided a working phone number so we can reach you if necessary. In the event that you had a lab culture while you were a patient in the Emergency Department, you will be notified by phone if there is a need to change your antibiotic. Please make sure you have provid ed a working phone number so we can reach you if necessary. [facility] Emergency Department has provided you with a complete list of medications post discharge. Please inform your sleeve setter/provider of your visit and for further instruction on these medications. Any specific questions regarding your chronic medications and dosages should be discussed with your primary care physician(s) and/or pharmacist. Medications to Continue That Have Not Changed Other Medications multivitamin, ( Multivitamins oral tablet) 1 tab(s) Oral every day. Visit Information Allergies: Substance Reaction Symptoms Type Comments Percocet 5/325 Drug sulfa drugs Drug Trimox Drug Vital Signs: Vitals and Measurements this Visit (last charted value for your 10/20/2017 visit) Vital Signs This Visit Temperature Temporal: 36.7 DegC Peripheral Pulse Rate: 94 bpm Respiratory Rate: 18 br/min Systolic Blood Pressure: 111 mmHg Diastolic Blood Pressure: 88 mmHg SpO2: 98 % Oxygen Therapy: Room air Measurements This Visit Height/Length Dosin.940 cm Height/Length Estimated: 154.940 cm Weight Dosin.210 kg Weight Estimated: 71.210 kg Problems List: Problem Onset Comments No Problems found Patient Education Back Pain in Back pain during is common. Back pain may be caused by several factors that are related to changes during your . Follow these instructions at home: Managing pain, stiffness, and swelling ? If directed, apply ice for sudden (acute) back pain. ? Put ice in a plastic bag. ? Place a towel between your skin and the bag. ? Leave the ice on for 20 minutes, 2?3 times per day. ? If directed, apply heat to the affected area before you exercise: ? Place a towel between your skin and the heat pack or heating pad. ? Leave the heat on for 20?30 minutes. ? Remove the heat if your skin turns bright red. This is especially important if you are unable to feel pain, heat, or cold. You may have a greater risk of getting burned. Activity ? Exercise as told by your health care provider. Exercising is the best way to prevent or manage back pain. ? Listen to your body when lifting. If lifting hurts, ask for help or bend your knees. This uses your leg muscles instead of your back muscles. ? Squat down when picking up something from the floor. Do not bend over. ? Only use bed rest as told by your health care provider. Bed rest should only be used for the most severe episodes of back pain. Standing, Sitting, and Lying Down ? Do not belting cutter one place for long periods of time. ? Use good posture when sitting. Make sure your head rests over your shoulders and is not hanging forward. Use a pillow on your lower back if necessary. ? Try sleeping on your side, preferably the left side, with a pillow or two between your legs. If you are sore after a night's rest, your bed may be too soft. A firm mattress may provide more support fo r your back during . General instructions ? Do not wear high heels. ? Eat a healthy diet. Try to gain weight within your health care provider's recommendations. ? Use a maternity girdle, elastic sling, or back brace as told by your health care provider. ? Take sqpx-erk-vwsrvcy and prescription medicines only as told by your health care provider. ? Keep all follow-up visits as told by your health care provider. This is important. This includes any visits with any specialists, such as a physical therapist. Contact a health care provider if: ? Your back pain interferes with your daily activities. ? You have increasing pain in other parts of your body. Get help right away if: ? You develop numbness, tingling, weakness, or problems with the use of your arms or legs. ? You develop severe back pain that is not controlled with medicine. ? You have a sudden change in bowel or bladder control. ? You develop shortness of breath, dizziness, or you faint. ? You develop nausea, vomiting, or sweating. ? You have back pain that is a rhythmic, cramping pain similar to labor pains. Labor pain is usually 1?2 minutes apart, lasts for about 1 minute, and involves a bearing down feeling or pressure in your pelvis. ? You have back pain and your water breaks or you have vaginal bleeding. ? You have back pain or numbness that travels down your leg. ? Your back pain developed after you fell. ? You develop pain on one side of your back. ? You see blood in your urine. ? You develop skin blisters in the area of your back pain. This information is not intended to replace advice given to you by your health care provider. Make sure you discuss any questions you have with your health care provider. Document Released: 07/08/2006 Document Revised: 09/04/2016 Document Reviewed: 12/12/2015 [employer] Interactive Patient Education ? 2018 [employer] Back Pain, Adult Back pain is very common in adults.?The cause of back pain is rarely dangerous and the pain often gets better over time.?The cause of your back pain may not be known. Some common causes of back pain include: ? Strain of the muscles or ligaments supporting the spine. ? Wear and tear (degeneration) of the spinal disks. ? Arthritis. ? Direct injury to the back. For many people, back pain may return. Since back pain is rarely dangerous, most people can learn to manage this condition on their own. Follow these instructions at home: Watch your back pain for any changes. The following actions may help to lessen any discomfort you are feeling: ? Remain active. It is stressful on your back to sit or belting cutter one place for long periods of time. Do not sit, drive, or belting cutter one place for more than 30 minutes at a time. Take short walks on even surfaces as soon as you are able.?Try to increase the length of time you walk each day. ? Exercise regularly as directed by your health care provider. Exercise helps your back heal faster. It also helps avoid future injury by keeping your muscles strong and flexible. ? Do not stay in bed.?Resting more than 1?2 days can delay your recovery. ? Pay attention to your body when you bend and lift. The most comfortable positions are those that put less stress on your recovering back. Always use proper lifting techniques, including: ? Bending your knees. ? Keeping the load close to your body. ? Avoiding twisting. ? Find a comfortable position to sleep. Use a firm mattress and lie on your side with your knees slightly bent. If you lie on your back, put a pillow under your knees. ? Avoid feeling anxious or stressed.?Stress increases muscle tension and can worsen back pain.?It is important to recognize when you are anxious or stressed and learn ways to manage it, such as with exercise. ? Take medicines only as directed by your health care provider. Jscz-glm-yybklde medicines to reduce pain and inflammation are often the most helpful.?Your health care provider may prescribe muscle rela xant drugs.?These medicines help dull your pain so you can more quickly return to your normal activities and healthy exercise. ? Apply ice to the injured area: ? Put ice in a plastic bag. ? Place a towel between your skin and the bag. ? Leave the ice on for 20 minutes, 2?3 times a day for the first 2?3 days. After that, ice and heat may be alternated to reduce pain and spasms. ? Maintain a healthy weight. Excess weight puts extra stress on your back and makes it difficult to maintain good posture. Contact a health care provider if: ? You have pain that is not relieved with rest or medicine. ? You have increasing pain going down into the legs or buttocks. ? You have pain that does not improve in one week. ? You have night pain. ? You lose weight. ? You have a fever or chills. Get help right away if: ? You develop new bowel or bladder control problems. ? You have unusual weakness or numbness in your arms or legs. ? You develop nausea or vomiting. ? You develop abdominal pain. ? You feel faint. This information is not intended to replace advice given to you by your health care provider. Make sure you discuss any questions you have with your health care provider. Document Released: 03/30/2006 Document Revised: 08/07/2016 Document Reviewed: 08/01/2014 [employer] Interactive Patient Education ? 2017 [employer] Muscle Strain A muscle strain is an injury that occurs when a muscle is stretched beyond its normal length. Usually a small number of muscle fibers are torn when this happens. Muscle strain is rated in degrees. First -degree strains have the least amount of muscle fiber tearing and pain. Second-degree and third-degree strains have increasingly more tearing and pain. Usually, recovery from muscle strain takes 1?2 weeks. Complete healing takes 5?6 weeks. What are the causes? Muscle strain happens when a sudden, violent force placed on a muscle stretches it too far. This may occur with lifting, sports, or a fall. What increases the risk? Muscle strain is especially common in athletes. What are the signs or symptoms? At the site of the muscle strain, there may be: ? Pain. ? Bruising. ? Swelling. ? Difficulty using the muscle due to pain or lack of normal function. How is this diagnosed? Your health care provider will perform a physical exam and ask about your medical history. How is this treated? Often, the best treatment for a muscle strain is resting, icing, and applying cold compresses to the injured area. Follow these instructions at home: ? Use the CUTLER method of treatment to promote muscle healing during the first 2?3 days after your injury. The CUTLER method involves: ? Protecting the muscle from being injured again. ? Restricting your activity and resting the injured body part. ? Icing your injury. To do this, put ice in a plastic bag. Place a towel between your skin and the bag. Then, apply the ice and leave it on from 15?20 minutes each hour. After the third day, switch to moist heat packs. ? Apply compression to the injured area with a splint or elastic bandage. Be careful not to wrap it too tightly. This may interfere with blood circulation or increase swelling. ? Elevate the injured body part above the level of your heart as often as you can. ? Only take qnsr-sdw-cqknmhf or prescription medicines for pain, discomfort, or fever as directed by your health care provider. ? Warming up prior to exercise helps to prevent future muscle strains. Contact a health care provider if: ? You have increasing pain or swelling in the injured area. ? You have numbness, tingling, or a significant loss of strength in the injured area. This information is not intended to replace advice given to you by your health care provider. Make sure you discuss any questions you have with your health care provider. Document Released: 03/30/2006 Document Revised: 09/04/2016 Document Reviewed: 10/27/2013 [employer] Interactive Patient Education ? 2017 [employer]. Viruses or Bacteria What?s got you sick? Antibiotics only treat bacterial infections. Viral illnesses cannot be treated with antibiotics. When an antibiotic is not prescribed, ask your healthcare professional for tips on how to relieve symptoms and feel better. Usual Cause Illness Viruses Bacteria Antibiotic Needed Cold/Runny Nose NO Bronchitis/Chest Cold (in otherwise healthy children and adults) NO Whooping Cough Yes Flu NO Strep Throat Yes Sore Throat (except strep) NO Fluid in the middle ear (otitis media with effusion) NO Urinary Tract Infection Yes Antibiotics Aren?t Always the Answer www.cdc.gov/getsmart GET SMART Know When Antibiotics Work [place] Department of Health and Human Services Centers for Disease Control and Prevention December 2013 ED CLINICAL SUMMARY Observed: 10/20/2017 Status: F Source: [facility] 5:01 PM HOSPITAL REPOSITORY [facility] - Emergency Department [address] [place], [place] [id number] ED Clinical Summary PERSON INFORMATION Name: KEENAN VENTURA Age: 22 Years Sex: FEMALE : [birth year] MRN: Acct#: Visit Reason: Rib/trunk pain-swelling; SOB, VOMITING Arrival: 10/20/17 15:39:00 Discharge: 10/20/17 16:53:00 LOS: 000 01:14 Check In: 10/20/17 15:39:00 Checkout:10/20/17 16:53:00 Address: [address] [place], [place] [id number] PCP: Provider, None PROVIDER INFORMATION Provider Role Assigned Unassigned Guero Branch PA-C ED PA 10/20/17 15:43:14 Sergey RNShakira ED Nurse 10/20/17 15:47:12 VITALS INFORMATION Vital Sign Triage Latest Temperature Tympanic Temperature Temporal Artery Pulse Rate 94 bpm 94 bpm O2 Sat 98 % 98 % Respiratory Rate 18 br/min 18 br/min Blood Pressure 111 mmHg/88 mmHg 111 mmHg/88 mmHg MEDICAL INFORMATION Medications Given: Medication Dose Route acetaminophen 500 mg PO Allergy Information: sulfa drugs; Percocet 5/325; Trimox PHYSICIAN DOCUMENTATION DISCHARGE INFORMATION: Discharge Disposition: Home Discharge Location: Home PATIENT EDUCATION INFORMATION Instructions: Back Pain in ; Back Pain, Adult; Muscle Strain Follow-Up: With: Address: When: Follow up with primary care provider Within 3 to 5 days Comments: Please follow up with primary care provider in 3-5 days. You were seen today for cc of left upper back pain. You were given tylenol here in the emergency department. you had labs completed which were wi thin normal limits. No urinary tract infection. Keep your appointment for for ultrasound. You may take tylenol as needed for discomfort. Continue to rest, and ice the left upper back. You may a lso try heat for comfort. Please follow up with occasional caregiver in 3-5 days. You may return here to the emergency department for any worsening or concerning symptoms. DIAGNOSIS: Muscle strain of left upper back Patient Understands: Yes - Patient/family/caregiver verbalizes understanding of instructions given Comment: UA W CULTURE IF IND Collected: 10/20/2017 Status: F Source: [facility] 4:26 PM HOSPITAL REPOSITORY TYPE CODE TESTS RESULT OUT OF RANGE REFERENCE UNITS LAB 20434061( LOINC) Urine Source Clean Catch LAB 0545988(L OINC) UA Color Unknown YELLOW LAB 0329577(L CLEAR OINC) UA Clarity CLEAR LAB 4636370(L 1.001-1.035 OINC) UA Spec Unknown Grav 1.020 LAB 9056592(L 5-8 OINC) UA pH Unknown 7.0 LAB 7413712(L NEGATIVE mg/dL OINC) UA Protein NEGATIVE LAB 4741557(L OINC) UA Glucose Unknown NEGATIVE LAB 9954583(L OINC) UA Ketones Unknown NEGATIVE LAB 1756681(L 0.2-1.0 mg/dL OINC) UA Urobilinogen 0.2 LAB 9708655(L NEGATIVE OINC) UA Leuk Est NEGATIVE LAB 1885570(L NEGATIVE OINC) UA Nitrite NEGATIVE LAB 0903865(L NEGATIVE OINC) UA Blood NEGATIVE LAB 0025111(L OINC) UA Bilirubin NEGATIVE LAB [id number] 1(LOINC) Breakpoint UA LAB 8530512(L OINC) Micro? Unknown Not Indicated LAB [id number](L OINC) Culture? Unknown Not Indicated Performed By: #### [id number] #### [facility] (DEFAULT) [address] [place] [id number] EXTRA RED Collected: 10/20/2017 Status: F Source: [facility] 4:01 PM HOSPITAL REPOSITORY TYPE CODE TESTS RESULT OUT OF RANGE REFERENCE UNITS LAB [id number] (LOINC) Unknown Tube Collected Yes Performed By: #### [id number] #### [facility] (DEFAULT) [address] [place] [address] EXTRA BLUE Collected: 10/20/2017 Status: F Source: [facility] 4:01 PM HOSPITAL REPOSITORY TYPE CODE TESTS RESULT OUT OF RANGE REFERENCE UNITS LAB [id number] (LOINC) Unknown Tube Collected Yes Performed By: #### [id number], [id number], [id number] #### [facility] (DEFAULT) [address] [place] [address] [id number] CBC W/ AUTO DIFF Collected: 10/20/2017 Status: F Source: [facility] 4:01 PM HOSPITAL REPOSITORY TYPE CODE TESTS RESULT OUT OF RANGE REFERENCE UNITS LAB 4850632(LO 3.5-10.5 x10 INC) High WBC 12.2 LAB 3543982(LO x10 INC) Unknown Instr WBC 12.2 LAB 6991429(LO 3.70-5.30 x10 INC) RBC 4.74 LAB 7393310(LO 11.3-15.9 gm/dL INC) Hgb 13.5 LAB 7584705(LO 33.7-40.4 % INC) Hct 39.6 LAB 0950873(LO 81-100 fL INC) MCV 84 LAB 3936895(LO 24-34 pg INC) MCH 28 LAB 8243006(LO 26-37 gm/dL INC) MCHC 34 LAB 3343595(LO 11.5-15.0 % INC) RDW 14.1 LAB 5634622(LO 138-427 x10 INC) Platelet 269 LAB 7441370(LO 6.3-10.2 fL INC) MPV 9.8 LAB 6445632(LO INC) Man Diff? Auto Performed By: #### [id number], [id number], [id number] #### [facility] (DEFAULT) [address] [place] [address] .AUTO DIFF 1 Collected: 10/20/2017 Status: F Source: [facility] 4:01 PM HOSPITAL REPOSITORY TYPE CODE TESTS RESULT OUT OF RANGE REFERENCE UNITS LAB 9957972(ZACH 44-88 % NC) Auto Neut 70 % LAB 6317739(ZACH 14-48 % NC) Auto 19 Lymph % LAB 5770183(ZACH 1-12 % NC) Auto [place] 10 % LAB 0535921(ZACH 0.9-4.0 % NC) Auto Eos 1.1 % LAB 1673650(ZACH 0.2-2.0 % NC) Auto Baso 0.2 % LAB 0767419(ZACH 1.5-9.2 x10 NC) Neut Abs# 8.5 LAB 6931389(ZACH 1.3-2.9 x10 NC) Lymph 2.3 Abs# LAB [id number](ZACH 0.0-0.8 x10 NC) [place] Abs# 1.3 LAB [id number](ZACH 0.0-0.4 x10 NC) Eos Abs# 0.1 LAB [id number](ZACH 0.0-0.2 x10 NC) Baso Abs# 0.0 Performed By: #### [id number], [id number], [id number] #### [facility] (DEFAULT) [address] [place] [id number] CMP STANDARD Collected: 10/20/2017 Status: F Source: [facility] 4:01 PM HOSPITAL REPOSITORY TYPE CODE TESTS RESULT OUT OF RANGE REFERENCE UNITS LAB [id number](LO 1.4-2.6 INC) Low A/G Ratio 1.1 LAB 5570193(LO 3.5-5.0 gm/dL INC) Albumin Level 3.5 LAB [id number](LO 32-91 IU/L INC) Alk Phos 37 LAB [id number](LO 14.0-54.0 IU/L INC) Low ALT/SGPT 9.0 LAB 7171254(LO 5.0-19.0 mmol/L INC) Anion Gap 11.0 LAB 2705405(LO 15-41 IU/L INC) AST/SGOT 17 LAB 1642440(LO 0.3-1.2 mg/dL INC) Bili Total 1.0 LAB 1174782(LO 8-26 mg/dL INC) BUN 10 LAB 3972849(LO 4.6-16.2 INC) BUN/Creat Ratio 16.0 LAB 6124702(LO 8.9-10.3 mg/dL INC) Low Calcium Level 8.6 LAB 9650402(LO 21-32 mmol/L INC) CO2 23 LAB 2556849(LO 101-111 mmol/L INC) Chloride Level 105 LAB 1889531(LO 0.60-1.30 mg/dL INC) Creatinine Level 0.63 LAB 7098775(LO 1.5-4.3 gm/dL INC) Globulin 3.1 LAB 8499234(LO 74.0-118.0 mg/dL INC) Low Glucose Level 70.0 LAB 7283244(LO 3.6-5.1 mmol/L INC) Potassium Level 3.9 LAB 5709626(LO 6.5-8.1 gm/dL INC) Protein Total 6.6 LAB 3432780(LO 136.0-144.0 mmol/L INC) Low Sodium Level 135.0 LAB 6841332(LO mOsm/L INC) Unknown Osmolality 268 LAB 1854915(LO mL/min/1.7 INC) Unknown 3m2 eGFR AA >60 Result Comment: Chronic Kidney disease could be indicated at eGFRs of less than 60 ml/min/1.73m2. Kidney Failure is indicated at less than 15 ml/min/1.73m2 LAB 5934206(LOINC) mL/min/1.73m2 Unknown eGFR Non >60 AA Performed By: #### [id number], [id number] #### [facility] (DEFAULT) [address] [place] [address] ED NOTE - PHYSICIAN Observed: 10/20/2017 Status: F Source: [facility] 3:43 PM HOSPITAL REPOSITORY Patient: KEENAN VENTURA Age: 22 years Sex: FEMALE : [birth year] Associated Diagnoses: Muscle strain of left upper back Author: Guero Branch PA-C Basic Information Time seen: Date & time 10/20/17 15:43:00. History source: Patient. Arrival mode: Private vehicle. History limitation: None. History of Present Illness 22-year-old female presented to the emergency room today with chief complaint of left upper back pain ?3-4 days. Patient states she is approximately 7 weeks . She states last menstrual cycle w as September 03. Patient denies any abdominal pain, vaginal bleeding or spotting. She states sometimes she gets abdominal cramping and which midwifes group stated was normal. She stated she had one vomitin g episode approximately 20 minutes prior to arrival. Patient weighs vomiting episode was due to her pain. She denies any history of kidney stones. States pain does not radiate to lower abdomen. She denies any trauma injury or fall. She denies any recent cough or cold type symptoms. Patient states she does have a 3-year-old son at home in which she was however states he is late and does not remem brandi pulling any muscles. Patient has not tried any modifying factors including Tylenol or ice as she was told that she shouldn't take anything until about 12 weeks . Patient states she has he r first transvaginal ultrasound to be completed this October 22. Patient denies any fever, chills. Patient states she was able to ENT fluids today prior to vomiting episode. She denies any mariah rrhea or black or tarry stools or blood in the stool. Patient states allergies including Percocet, sulfa, Trimox. Patient has no other concerns this time. Patient does not currently have a primary care provider. Review of Systems Constitutional symptoms: No fever, no chills, no sweats, no weakness, no fatigue. Skin symptoms: No rash, Eye symptoms: Vision unchanged. ENMT symptoms: No ear pain, no sore throat, no nasal congestion. Respiratory symptoms: No shortness of breath, no cough. Cardiovascular symptoms: No chest pain, no palpitations, no syncope, no diaphoresis, no peripheral edema. Gastrointestinal symptoms: Vomiting, no abdominal pain, no nausea, no diarrhea, no constipation, no rectal bleeding. Genitourinary symptoms: No dysuria, no hematuria, no vaginal bleeding, no vaginal discharge. Musculoskeletal symptoms: Back pain, Left upper back pain., no Muscle pain, no Joint pain. Neurologic symptoms: No headache, no dizziness, no altered level of consciousness, no numbness, no tingling, no weakness. Additional review of systems information: All other systems reviewed and otherwise negative. Health Status Allergies: Allergic Reactions (Selected) Severity Not Documented Percocet 5/325- No reactions were documented. Sulfa drugs- No reactions were documented. Trimox- No reactions were documented.. Medications: (Selected) Inpatient Medications Ordered Tylenol: 500 mg, 1 tab(s), PO, Once. Menstrual history: Last menstrual period: Date 09/03/2017. history: Currently , 7 weeks, 3, para 1, full term births 1, spontaneous (s) 1, Patient states miscarriage in July of this year. She has 1 living child at home.. Past Medical/ Family/ Social History Social history: Social & Psychosocial Habits Tobacco 06/14/2017 Smoking tobacco use: 5-9 cigarettes (between 1 Comment: Smokes 04/15 PPD - 06/14/2017 19:10 - Mckenzie Terry RN . Physical Examination General: Alert, no acute distress. Skin: Warm, dry, intact, no pallor, no rash. Head: Normocephalic, atraumatic. Neck: Supple. Eye: Pupils are equal, round and reactive to light, extraocular movements are intact, normal conjunctiva. Ears, nose, mouth and throat: Oral mucosa moist. Cardiovascular: Regular rate and rhythm, No murmur, Normal peripheral perfusion, No edema. Respiratory: Lungs are clear to auscultation, respirations are non-labored, breath sounds are equal, Symmetrical chest wall expansion, Lung sounds clear bilaterally. No wheezing rhonchi or crackles on exam.. Chest wall: No tenderness, No deformity. Back: Patient has mid upper back tenderness on the left. No CVA tenderness. This is a muscular in nature at this is reproducible on exam. No localized spinal or paraspinal tenderness. No focal deficits. No CVA tenderness.. Musculoskeletal: Normal ROM, normal strength, no tenderness, no swelling, no deformity, Normal range of motion of all 4 extremities. No deformities or crepitus. No acute swelling. No acute tendernes s. No focal deficits. Patient is neurovascularly intact.. Gastrointestinal: Soft, Nontender, Non distended, Normal bowel sounds, No organomegaly, Abdomen is soft, nontender, nondistended. No rigidity rebound or guarding on exam.. Neurological: Alert and oriented to person, place, time, and situation, No focal neurological deficit observed, normal sensory observed, normal motor observed, normal speech observed, normal coordinati on observed, Normal sensory, motor, speech, coordination is observed on exam.. Lymphatics: No lymphadenopathy. Psychiatric: Cooperative, appropriate mood & affect, normal judgment. Medical Decision Making Orders Launch Orders Laboratory: CMP Standard (Order): Blood, Stat collect, 10/20/17 16:01 EDT, Lab Collect CBC w/ Auto Diff (Order): Blood, Stat collect, 10/20/17 16:01 EDT, Lab Collect Urinalysis with Culture, if indicated Standard (Order): Urine, Stat collect, 10/20/17 16:01 EDT, Nurse collect, Launch Orders Pharmacy: Tylenol (Order): 500 mg, PO, Once. Results review: Lab results : Lab Flowsheet 10/20/17 16:26 EDT UA Color YELLOW UA Clarity CLEAR UA Glucose NEGATIVE UA Ketones NEGATIVE UA Spec Grav 1.020 UA Blood NEGATIVE UA pH 7.0 UA Protein NEGATIVE mg/dL UA Urobilinogen 0.2 mg/dL UA Nitrite NEGATIVE UA Leuk Est NEGATIVE UA Bilirubin NEGATIVE Urine Source Clean Catch Micro? Not Indicated Culture? Not Indicated 10/20/17 16:01 EDT Sodium Level 135.0 mmol/L LOW Potassium Level 3.9 mmol/L Chloride Level 105 mmol/L CO2 23 mmol/L Anion Gap 11.0 mmol/L Glucose Level 70.0 mg/dL LOW BUN 10 mg/dL Creatinine Level 0.63 mg/dL BUN/Creat Ratio 16.0 eGFR AA >60 mL/min/1.73m2 NA eGFR Non AA >60 mL/min/1.73m2 NA Calcium Level 8.6 mg/dL LOW Bili Total 1.0 mg/dL Alk Phos 37 IU/L AST/SGOT 17 IU/L ALT/SGPT 9.0 IU/L LOW Protein Total 6.6 gm/dL Albumin Level 3.5 gm/dL Globulin 3.1 gm/dL A/G Ratio 1.1 LOW Osmolality 268 mOsm/L NA WBC 12.2 x103/mcL HI RBC 4.74 x106/mcL Hgb 13.5 gm/dL Hct 39.6 % MCV 84 fL MCH 28 pg MCHC 34 gm/dL RDW 14.1 % Platelet 269 x103/mcL MPV 9.8 fL Auto Neut % 70 % Auto Lymph % 19 % Auto [place] % 10 % Auto Eos % 1.1 % Auto Baso % 0.2 % Neut Abs# 8.5 x103/mcL Lymph Abs# 2.3 x103/mcL [place] Abs# 1.3 x103/mcL HI Eos Abs# 0.1 x103/mcL Baso Abs# 0.0 x103/mcL Tube Collected Yes Tube Collected Yes . Reexamination/ Reevaluation 16:33 Pts labs wnl. I spoke with pt in regards to left upper back pain which seems to be muscular in nature. She may return here to the emergency department for any worsening or concerning symptoms. Left uper back strain. Impression and Plan Diagnosis Muscle strain of left upper back ([id number] S29.012A, Discharge, Medical) Plan Condition: Stable. Disposition: Discharged: Time 10/20/17 16:36:00, to home. Patient was given the following educational materials: Muscle Strain, Back Pain, Adult, Back Pain in , Back Pain in , Back Pain, Adult, Muscle Strain. Follow up with: ; Follow up with primary care provider Within 3 to 5 days Please follow up with primary care provider in 3-5 days. You were seen today for cc of left upper back pain. You were given tyle nol here in the emergency department. you had labs completed which were within normal limits. No urinary tract infection. Keep your appointment for for ultrasound. You may take tylenol as neede d for discomfort. Continue to rest, and ice the left upper back. You may also try heat for comfort. Please follow up with occasional caregiver in 3-5 days. You may return here to the emergency department for any worsening or concerning symptoms. . Counseled: Patient, Friend, Regarding diagnosis, Regarding diagnostic results, Regarding treatment plan, Patient indicated understanding of instructions. Notes: 22-year-old female presented to the emergency department today with her friend with chief complaint of left upper back pain. Patient denies any falls, injuries. She does state she is approximat oshail 7 weeks . She states one episode of vomiting today she relates to the back pain. She denies any history of kidney stones. She denies any fever chills. She denied any dysuria hematuria ab dominal pain vaginal bleeding diarrhea black or bloody stools or tarry stools. She was afebrile non-tachycardic. Patient not try any Tylenol for discomfort as she states that [facility] told her to try not to take anything until about 12 weeks as she had prior miscarriage in July of this year. Patient is with one spontaneous and one living child. Bryan sawyer states last menstrual cycle was September 03. On exam patient had left upper back tenderness upper mid back pain which is reproducible on exam this appears to be muscular in nature. No acute bruising lacerations abrasions or lesions. No localizing spinal or paraspinal tenderness. There are no focal deficits on exam. She was neurovascularly intact. I spoke with patient in regards to labs complete d as CBC CMP as well as urine was negative. Patient is to follow-up with MAID SUPERVISOR in the next 3-5 days as she has an appointment for ultrasound on . Patient agrees and understands this plan of c are. She will call MAID SUPERVISOR tomorrow morning to see if she is able to tolerate Tylenol at home. She will also try ice or heat at home. Patient agrees and understands the plan of care. She understands to return here to the emergency department for any worsening or concerning symptoms.. [Electronically Signed on: 10/20/2017 17:32 EDT] Guero Branch PA-C [Verified on: 10/20/2017 17:32 EDT] Guero Branch PA-C Observed: 07/21/2017 Status: F Source: [employer] GEL 6:54 AM SYSTEM REPOSITORY ABO Group: A Rh, Gel: POS Antibody Screen Gel: NEG Performed By: #### TSGL #### [place] [id number] ED NOTE Observed: 07/10/2017 Status: COMPLETED Source: [facility] 9:57 PM [facility] [place] REPOSITORY HNO ID: [id number] Author: Deandra (Rn) DILLAN Arvizu Service: Emergency Medicine Author Type: Registered Nurse Type: ED Notes Filed: 07/10/2017 10:00 PM Note Text: Patient is alert, talkative, no distress, states she wishes to go home. Understands that we recommend US but she would be transferred, declined at this time. Patient encouraged to return or go to [facility], where her OB would deliver her baby, if she would still like ultrasound. Recommend to return with any new or worsening symptoms, follow up with her PCP. Ambulates with ease to lobby. ED PROV NOTE Observed: 07/10/2017 Status: COMPLETED Source: [facility] 9:40 PM [facility] [place] REPOSITORY HNO ID: [id number] Author: Esteban Paulson MD Service: Emergency Medicine Author Type: Physician Type: ED Provider Notes Filed: 07/10/2017 9:50 PM Note Text: ED Provider Note Patient Name: Keenan Ventura SERVICE DATE: 07/10/17 History Patient presents with: Vaginal Bleeding Abdominal Pain Patient is a 22 year old female presenting with vaginal bleeding. Vaginal Bleeding Quality: Dark red Severity: Mild Onset quality: Sudden Duration: 2 hours Timing: Unable to specify Progression: Resolved Chronicity: New Possible : yes Context comment: Patient slipped and fell onto her behind him and she noted some small amount of brown bleeding Ineffective treatments: None tried Associated symptoms: abdominal pain Associated symptoms: no back pain, no dizziness, no dysuria, no fever and no nausea Risk factors: no bleeding disorder and no hx of ectopic PAST MEDICAL HISTORY Diagnosis Date - Anxiety - Bipolar 1 disorder (HCC) - Cigarette smoker continue to try to quit smoking - Depression - Gallbladder sludge 11/03/2014 - GERD (gastroesophageal reflux disease) - Irregular menses - Migraine - Migraine continue ibuprofen prn - PTSD (post-traumatic stress disorder) - Ulcer PAST SURGICAL HISTORY Procedure Laterality Date - SECTION HX - CHOLECYSTECTOMY HX - EGD - EXC INGROWN TOE NAIL REMOVAL - EXTRACTION ERUPTED TOOTH/EXR wisdom teeth - PAST SURGICAL HISTORY OF foot surgery - REMOVAL GALLBLADDER 06/07/2015 FAMILY HISTORY Problem Relation Age of Onset - Hypertension Mother - Lipids Mother - Heart Mother - Psychiatry Mother bipolar - COPD Mother - Hyperlipidemia Mother - bipolar disorder [OTHER] Mother - depressive disorder [OTHER] Mother - smoking tobacco [OTHER] Mother - smoking tobacco [OTHER] Father - Collagen disease Maternal Grandfather - Ischemic Heart Disease Maternal Grandfather - Ischemic Heart Disease Maternal Grandmother - Stroke Maternal Grandmother - Diabetes Maternal Grandmother Social History Social History Main Topics - Smoking status: Current Every Day Smoker Packs/day: 0.50 Types: Cigarettes Start date: 05/30/2006 - Smokeless tobacco: Never Used Comment: since age 12 yrs - Alcohol use Yes Comment: rarely - Drug use: 1.00 per week Special: Marijuana Comment: denies other illegal drug use - Sexual activity: Yes Partners: Male ALLERGIES Allergen Reactions - Percocet [Oxycodone* Hives - Sulfa (Sulfonamide * Rash - Trimox [Amoxicillin] Swelling Review of Systems Constitutional: Negative for activity change, chills and fever. Cardiovascular: Negative for chest pain and palpitations. Gastrointestinal: Positive for abdominal pain. Negative for nausea. Genitourinary: Positive for vaginal bleeding. Negative for difficulty urinating, dysuria, frequency, pelvic pain and urgency. Musculoskeletal: Negative for back pain and neck pain. Allergic/Immunologic: Negative for environmental allergies, food allergies and immunocompromised state. Neurological: Negative for dizziness, syncope and light-headedness. Psychiatric/Behavioral: Negative for confusion. The patient is not nervous/anxious. Physical Exam BP 115/81 Pulse 104 Temp (Src) 98.6 (Oral) Resp 16 Ht 4' 11 (1.50m) Wt 145 lb (65.8kg) SpO2 100% LMP 05/16/2017 BMI 29.27 kg/(m2). Physical Exam Constitutional: She is oriented to person, place, and time. She appears well-developed and well-nourished. No distress. HENT: Head: Normocephalic and atraumatic. Eyes: EOM are normal. Right eye exhibits no discharge. Left eye exhibits no discharge. No scleral icterus. Neck: Normal range of motion. Neck supple. No tracheal deviation present. Pulmonary/Chest: Effort normal. No respiratory distress. Abdominal: Soft. She exhibits no distension. There is no tenderness. There is no rebound. Musculoskeletal: Normal range of motion. She exhibits no edema, tenderness or deformity. Neurological: She is alert and oriented to person, place, and time. Coordination normal. Skin: Skin is warm and dry. No rash noted. She is not diaphoretic. No erythema. No pallor. Psychiatric: She has a normal mood and affect. Her behavior is normal. Judgment and thought content normal. Nursing note and vitals reviewed. Diagnostic Testing ED Labs Ordered and Reviewed - No data to display Procedures Medical Decision Making / ED Course ED Course Patient states that she has very little bleeding was just a little bit of spotting after she fell and she did not get an ultrasound done today when she went to her OB appointment she says that she missed the ultrasound part of the visit and had an hCG done which was 15,000 her last menses was about May 16 sagittal heart tones were obtained and she was told that she could be anywhere from 2 months to 4 months along and she needs to reschedule ultrasound after she fell she noted a little bit of brownish blood and she is stating that she has some very mild lower abdominal cramping I discussed with her that we needed to establish her Rh factor she was not sure about this I went through her old records and find that she is blood type A+ also advised that since we do not know if this is an intrauterine and she has bleeding and lower abdominal pain that she should get an ultrasound done tonight to evaluate this I will have to transfer her in order to do this and I anticipate that it'll be okay but nonetheless with these complaints that needs to be ruled out the patient however does not want to do this she does not want to go all the way to another hospital to have the stone I offered to make calls to closer hospitals I know that [facility] do this I am not sure about the hospitals closer to his but it is possible that ultrasound technicians won't be available in either event though the patient has opted to go home and watch and wait rather than do any acute imaging tonight she has a soft abdomen normal vitals she has Rh+ and I believe she has a capacity to make her own decisions at this time so she's more than welcome to return if she changes her mind and she does need to do follow-up and establish that this is an IUP ultimately. No diagnosis found. Plan The Patient was DISCHARGED: Counseled patient regarding suspected diagnosis AND need for follow-up. Discharged home with verbal and written instructions. They were instructed to return as needed for persistent or worsening symptoms or any new concerns. Condition at time of disposition: stable SIGNATURE: MD Esteban Navarrete MD 07/10/17 9520 CODING SUMMARY Observed: 06/17/2017 Status: F Source: [facility] 8:08 AM HOSPITAL REPOSITORY CODING DATE: 06/17/2017 [facility] STATUS: Home PAYOR: Medicaid HMO ADMIT DX: REASON FOR VISIT DX: R53.83 Other fatigue R11.0 Nausea FINAL DX: PRINCIPAL: Z32.01 Encounter for test, result positive SECONDARY: PROCEDURES DOCTOR NAME DATE NOTE: The code number assigned matches the documented diagnosis and / or procedure in the patient's chart. However, the narrative phrase printed from the coding software may appear abbreviated, or result in slightly different terminology. Coded By: Mag Harvey Date Saved: 06/17/2017 08:08 am CODING SUMMARY Observed: 06/17/2017 Status: F Source: [facility] 8:06 AM HOSPITAL REPOSITORY CODING DATE: 06/17/2017 FINAL [facility] STATUS: Home PAYOR: Medicaid HMO ADMIT DX: REASON FOR VISIT DX: R53.83 Other fatigue R11.0 Nausea FINAL DX: PRINCIPAL: Z32.01 Encounter for test, result positive SECONDARY: PROCEDURES DOCTOR NAME DATE NOTE: The code number assigned matches the documented diagnosis and / or procedure in the patient's chart. However, the narrative phrase printed from the coding software may appear abbreviated, or result in slightly different terminology. Revised Coded By: Mag Harvey Revised Date Saved: 06/17/2017 08:06 am ED PATIENT EDUCATION Observed: 06/14/2017 Status: C Source: [facility] NOTE 8:48 PM HOSPITAL REPOSITORY [employer] Obstetrics and Gynecology First Trimester of The first trimester of is from week 1 until the end of week 12 (months 1 through 3). A week after a sperm fertilizes an egg, the egg will implant on the wall of the uterus. This embryo will be gin to develop into a baby. Genes from you and your partner are forming the baby. The male genes determine whether the baby is a boy or a girl. At 6?8 weeks, the eyes and face are formed, and the heartb eat can be seen on ultrasound. At the end of 12 weeks, all the baby's organs are formed. Now that you are , you will want to do everything you can to have a healthy baby. Two of the most important things are to get good care and to follow your health care provider's instruc tions. care is all the medical care you receive before the baby's . This care will help prevent, find, and treat any problems during the and childbirth. BODY CHANGES Your body goes through many changes during . The changes vary from woman to woman. ? You may gain or lose a couple of pounds at first. ? You may feel sick to your stomach (nauseous) and throw up (vomit). If the vomiting is uncontrollable, call your health care provider. ? You may tire easily. ? You may develop headaches that can be relieved by medicines approved by your health care provider. ? You may urinate more often. Painful urination may mean you have a bladder infection. ? You may develop heartburn as a result of your . ? You may develop constipation because certain hormones are causing the muscles that push waste through your intestines to slow down. ? You may develop hemorrhoids or swollen, bulging veins (varicose veins). ? Your breasts may begin to grow larger and become tender. Your nipples may stick out more, and the tissue that surrounds them (areola) may become darker. ? Your gums may bleed and may be sensitive to brushing and flossing. ? Dark spots or blotches (chloasma, mask of ) may develop on your face. This will likely fade after the baby is born. ? Your menstrual periods will stop. ? You may have a loss of appetite. ? You may develop cravings for certain kinds of food. ? You may have changes in your emotions from day to day, such as being excited to be or being concerned that something may go wrong with the and baby. ? You may have more vivid and strange dreams. ? You may have changes in your hair. These can include thickening of your hair, rapid growth, and changes in texture. Some women also have hair loss during or after , or hair that feels dry or thin. Your hair will most likely return to normal after your baby is born. WHAT TO EXPECT AT YOUR VISITS During a routine visit: ? You will be weighed to make sure you and the baby are growing normally. ? Your blood pressure will be taken. ? Your abdomen will be measured to track your baby's growth. ? The heartbeat will be listened to starting around week 10 or 12 of your . ? Test results from any previous visits will be discussed. Your health care provider may ask you: ? How you are feeling. ? If you are feeling the baby move. ? If you have had any abnormal symptoms, such as leaking fluid, bleeding, severe headaches, or abdominal cramping. ? If you are using any tobacco products, including cigarettes, chewing tobacco, and electronic cigarettes. ? If you have any questions. Other tests that may be performed during your first trimester include: ? Blood tests to find your blood type and to check for the presence of any previous infections. They will also be used to check for low iron levels (anemia) and Rh antibodies. Later in the , bl ood tests for diabetes will be done along with other tests if problems develop. ? Urine tests to check for infections, diabetes, or protein in the urine. ? An ultrasound to confirm the proper growth and development of the baby. ? An amniocentesis to check for possible genetic problems. ? screens for spina bifida and Down syndrome. ? You may need other tests to make sure you and the baby are doing well. ? HIV (human immunodeficiency virus) testing. Routine testing includes screening for HIV, unless you choose not to have this test. HOME CARE INSTRUCTIONS Medicines ? Follow your health care provider's instructions regarding medicine use. Specific medicines may be either safe or unsafe to take during . ? Take your vitamins as directed. ? If you develop constipation, try taking a stool softener if your health care provider approves. Diet ? Eat regular, well-balanced meals. Choose a variety of foods, such as meat or vegetable-based protein, fish, milk and low-fat dairy products, vegetables, fruits, and whole grain breads and cereals. You r health care provider will help you determine the amount of weight gain that is right for you. ? Avoid raw meat and uncooked cheese. These carry germs that can cause defects in the baby. ? Eating four or five small meals rather than three large meals a day may help relieve nausea and vomiting. If you start to feel nauseous, eating a few soda crackers can be helpful. Drinking liquids bet ween meals instead of during meals also seems to help nausea and vomiting. ? If you develop constipation, eat more high-fiber foods, such as fresh vegetables or fruit and whole grains. Drink enough fluids to keep your urine clear or pale yellow. Activity and Exercise ? Exercise only as directed by your health care provider. Exercising will help you: ? Control your weight. ? Stay in shape. ? Be prepared for labor and delivery. ? Experiencing pain or cramping in the lower abdomen or low back is a good sign that you should stop exercising. Check with your health care provider before continuing normal exercises. ? Try to avoid standing for long periods of time. Move your legs often if you must belting cutter one place for a long time. ? Avoid heavy lifting. ? Wear low-heeled shoes, and practice good posture. ? You may continue to have sex unless your health care provider directs you otherwise. Relief of Pain or Discomfort ? Wear a good support bra for breast tenderness. ? ? Take warm sitz baths to soothe any pain or discomfort caused by hemorrhoids. Use hemorrhoid cream if your health care provider approves. ? ? Rest with your legs elevated if you have leg cramps or low back pain. ? If you develop varicose veins in your legs, wear support hose. Elevate your feet for 15 minutes, 3?4 times a day. Limit salt in your diet. Care ? Schedule your visits by the twelfth week of . They are usually scheduled monthly at first, then more often in the last 2 months before delivery. ? Write down your questions. Take them to your visits. ? Keep all your visits as directed by your health care provider. Safety ? Wear your seat belt at all times when driving. ? Make a list of emergency phone numbers, including numbers for family, friends, the hospital, and police and fire departments. General Tips ? Ask your health care provider for a referral to a local education class. Begin classes no later than at the beginning of month 6 of your . ? Ask for help if you have counseling or nutritional needs during . Your health care provider can offer advice or refer you to specialists for help with various needs. ? Do notuse hot tubs, steam rooms, or saunas. ? Do notdouche or use tampons or scented sanitary pads. ? Do notcross your legs for long periods of time. ? Avoid cat litter boxes and soil used by cats. These carry germs that can cause defects in the baby and possibly loss of the fetus by miscarriage or stillbirth. ? Avoid all smoking, herbs, alcohol, and medicines not prescribed by your health care provider. Chemicals in these affect the formation and growth of the baby. ? Do notuse any tobacco products, including cigarettes, chewing tobacco, and electronic cigarettes. If you need help quitting, ask your health care provider. You may receive counseling support and other resources to help you quit. ? Schedule a dentist appointment. At home, brush your teeth with a soft toothbrush and be gentle when you floss. SEEK MEDICAL CARE IF: ? You have dizziness. ? You have mild pelvic cramps, pelvic pressure, or nagging pain in the abdominal area. ? You have persistent nausea, vomiting, or diarrhea. ? You have a bad smelling vaginal discharge. ? You have pain with urination. ? You notice increased swelling in your face, hands, legs, or ankles. SEEK IMMEDIATE MEDICAL CARE IF: ? You have a fever. ? You are leaking fluid from your vagina. ? You have spotting or bleeding from your vagina. ? You have severe abdominal cramping or pain. ? You have rapid weight gain or loss. ? You vomit blood or material that looks like coffee grounds. ? You are exposed to [place] measles and have never had them. ? You are exposed to fifth disease or chickenpox. ? You develop a severe headache. ? You have shortness of breath. ? You have any kind of trauma, such as from a fall or a car accident. This information is not intended to replace advice given to you by your health care provider. Make sure you discuss any questions you have with your health care provider. Document Released: 03/24/2002 Document Revised: 04/20/2015 Document Reviewed: 02/07/2014 [employer] Interactive Patient Education ? 2017 [employer] ED PATIENT SUMMARY Observed: 06/14/2017 Status: C Source: [facility] 8:48 PM HOSPITAL REPOSITORY [facility] - Emergency Department [address] [place] [id number] PATIENT DISCHARGE INSTRUCTIONS Patient Information Name: KEENAN VENTURA Age: 22 Years Date of : [birth year] Reason For Visit: General medical; BREAST TENDERNESS, INCREASED APPETITE Arrival Time: 06/14/17 18:27:00 Primary Care Physician: Provider, None Attending Physician: Randell Zarate MD Comment: Visit Diagnosis: Diagnoses This Visit Currently (Z34.90) General medical ([id number]) If you received any narcotics, sedation, or any other medication that causes drowsiness for the next 24 hours, unless otherwise directed: ? Do not drive a car. ? Do not operate machinery such as power tools, lawn mowers, drills, sewing machines, or stoves ? Avoid alcoholic beverages and drugs for allergies, nerves, or sleep ? Do not make important personal or business decisions or sign any legal documents With: Address: When: Consuelo Mejia Within 3 to 5 days With: Address: When: YURI DOTY [address] [place] [address]. [address] [place] [address] Business (1) Within 3 to 5 days Medication Information: The exam and treatment you received today in the [facility] Emergency Department were for an urgent problem and are not intended as complete care. It is important for you to follow up with a doctor, nurse practitioner, or physician?s assistant paralegal for ongoing care. If your symptoms become worse or you do not improve as expected and you are unable to reach your usual health care provider, you should return t o the Emergency Department, we are available 24 hours a day. For those patients who have received Radiology results, the interpretation of your X-ray as given to you by our Emergency Department physician is only a preliminary report. The Radiologist will review y our films and if there is a change in the diagnosis you will be notified by phone. Please make sure you have provided a working phone number so we can reach you if necessary. In the event that you had a lab culture while you were a patient in the Emergency Department, you will be notified by phone if there is a need to change your antibiotic. Please make sure you have provid ed a working phone number so we can reach you if necessary. [facility] Emergency Department has provided you with a complete list of medications post discharge. Please inform your sleeve setter/provider of your visit and for further instruction on these medications. Any specific questions regarding your chronic medications and dosages should be discussed with your primary care physician(s) and/or pharmacist. Visit Information Allergies: Substance Reaction Symptoms Type Comments Percocet 5/325 Drug sulfa drugs Drug Trimox Drug Vital Signs: Vitals and Measurements this Visit (last charted value for your 06/14/2017 visit) Vital Signs This Visit Temperature Temporal: 36.4 DegC Peripheral Pulse Rate: 96 bpm Respiratory Rate: 16 br/min Systolic Blood Pressure: 102 mmHg Diastolic Blood Pressure: 40 mmHg SpO2: 99 % Oxygen Therapy: Room air Measurements This Visit Height/Length Dosin.860 cm Height/Length Estimated: 149.860 cm Weight Dosin.970 kg Weight Estimated: 58.970 kg Problems List: Problem Onset Comments No Problems found Patient Education First Trimester of The first trimester of is from week 1 until the end of week 12 (months 1 through 3). A week after a sperm fertilizes an egg, the egg will implant on the wall of the uterus. This embryo will be gin to develop into a baby. Genes from you and your partner are forming the baby. The male genes determine whether the baby is a boy or a girl. At 6?8 weeks, the eyes and face are formed, and the heartb eat can be seen on ultrasound. At the end of 12 weeks, all the baby's organs are formed. Now that you are , you will want to do everything you can to have a healthy baby. Two of the most important things are to get good care and to follow your health care provider's instruc tions. care is all the medical care you receive before the baby's . This care will help prevent, find, and treat any problems during the and childbirth. BODY CHANGES Your body goes through many changes during . The changes vary from woman to woman. ? You may gain or lose a couple of pounds at first. ? You may feel sick to your stomach (nauseous) and throw up (vomit). If the vomiting is uncontrollable, call your health care provider. ? You may tire easily. ? You may develop headaches that can be relieved by medicines approved by your health care provider. ? You may urinate more often. Painful urination may mean you have a bladder infection. ? You may develop heartburn as a result of your . ? You may develop constipation because certain hormones are causing the muscles that push waste through your intestines to slow down. ? You may develop hemorrhoids or swollen, bulging veins (varicose veins). ? Your breasts may begin to grow larger and become tender. Your nipples may stick out more, and the tissue that surrounds them (areola) may become darker. ? Your gums may bleed and may be sensitive to brushing and flossing. ? Dark spots or blotches (chloasma, mask of ) may develop on your face. This will likely fade after the baby is born. ? Your menstrual periods will stop. ? You may have a loss of appetite. ? You may develop cravings for certain kinds of food. ? You may have changes in your emotions from day to day, such as being excited to be or being concerned that something may go wrong with the and baby. ? You may have more vivid and strange dreams. ? You may have changes in your hair. These can include thickening of your hair, rapid growth, and changes in texture. Some women also have hair loss during or after , or hair that feels dry or thin. Your hair will most likely return to normal after your baby is born. WHAT TO EXPECT AT YOUR VISITS During a routine visit: ? You will be weighed to make sure you and the baby are growing normally. ? Your blood pressure will be taken. ? Your abdomen will be measured to track your baby's growth. ? The heartbeat will be listened to starting around week 10 or 12 of your . ? Test results from any previous visits will be discussed. Your health care provider may ask you: ? How you are feeling. ? If you are feeling the baby move. ? If you have had any abnormal symptoms, such as leaking fluid, bleeding, severe headaches, or abdominal cramping. ? If you are using any tobacco products, including cigarettes, chewing tobacco, and electronic cigarettes. ? If you have any questions. Other tests that may be performed during your first trimester include: ? Blood tests to find your blood type and to check for the presence of any previous infections. They will also be used to check for low iron levels (anemia) and Rh antibodies. Later in the , bl ood tests for diabetes will be done along with other tests if problems develop. ? Urine tests to check for infections, diabetes, or protein in the urine. ? An ultrasound to confirm the proper growth and development of the baby. ? An amniocentesis to check for possible genetic problems. ? screens for spina bifida and Down syndrome. ? You may need other tests to make sure you and the baby are doing well. ? HIV (human immunodeficiency virus) testing. Routine testing includes screening for HIV, unless you choose not to have this test. HOME CARE INSTRUCTIONS Medicines ? Follow your health care provider's instructions regarding medicine use. Specific medicines may be either safe or unsafe to take during . ? Take your vitamins as directed. ? If you develop constipation, try taking a stool softener if your health care provider approves. Diet ? Eat regular, well-balanced meals. Choose a variety of foods, such as meat or vegetable-based protein, fish, milk and low-fat dairy products, vegetables, fruits, and whole grain breads and cereals. You r health care provider will help you determine the amount of weight gain that is right for you. ? Avoid raw meat and uncooked cheese. These carry germs that can cause defects in the baby. ? Eating four or five small meals rather than three large meals a day may help relieve nausea and vomiting. If you start to feel nauseous, eating a few soda crackers can be helpful. Drinking liquids bet ween meals instead of during meals also seems to help nausea and vomiting. ? If you develop constipation, eat more high-fiber foods, such as fresh vegetables or fruit and whole grains. Drink enough fluids to keep your urine clear or pale yellow. Activity and Exercise ? Exercise only as directed by your health care provider. Exercising will help you: ? Control your weight. ? Stay in shape. ? Be prepared for labor and delivery. ? Experiencing pain or cramping in the lower abdomen or low back is a good sign that you should stop exercising. Check with your health care provider before continuing normal exercises. ? Try to avoid standing for long periods of time. Move your legs often if you must belting cutter one place for a long time. ? Avoid heavy lifting. ? Wear low-heeled shoes, and practice good posture. ? You may continue to have sex unless your health care provider directs you otherwise. Relief of Pain or Discomfort ? Wear a good support bra for breast tenderness. ? ? Take warm sitz baths to soothe any pain or discomfort caused by hemorrhoids. Use hemorrhoid cream if your health care provider approves. ? ? Rest with your legs elevated if you have leg cramps or low back pain. ? If you develop varicose veins in your legs, wear support hose. Elevate your feet for 15 minutes, 3?4 times a day. Limit salt in your diet. Care ? Schedule your visits by the twelfth week of . They are usually scheduled monthly at first, then more often in the last 2 months before delivery. ? Write down your questions. Take them to your visits. ? Keep all your visits as directed by your health care provider. Safety ? Wear your seat belt at all times when driving. ? Make a list of emergency phone numbers, including numbers for family, friends, the hospital, and police and fire departments. General Tips ? Ask your health care provider for a referral to a local education class. Begin classes no later than at the beginning of month 6 of your . ? Ask for help if you have counseling or nutritional needs during . Your health care provider can offer advice or refer you to specialists for help with various needs. ? Do notuse hot tubs, steam rooms, or saunas. ? Do notdouche or use tampons or scented sanitary pads. ? Do notcross your legs for long periods of time. ? Avoid cat litter boxes and soil used by cats. These carry germs that can cause defects in the baby and possibly loss of the fetus by miscarriage or stillbirth. ? Avoid all smoking, herbs, alcohol, and medicines not prescribed by your health care provider. Chemicals in these affect the formation and growth of the baby. ? Do notuse any tobacco products, including cigarettes, chewing tobacco, and electronic cigarettes. If you need help quitting, ask your health care provider. You may receive counseling support and other resources to help you quit. ? Schedule a dentist appointment. At home, brush your teeth with a soft toothbrush and be gentle when you floss. SEEK MEDICAL CARE IF: ? You have dizziness. ? You have mild pelvic cramps, pelvic pressure, or nagging pain in the abdominal area. ? You have persistent nausea, vomiting, or diarrhea. ? You have a bad smelling vaginal discharge. ? You have pain with urination. ? You notice increased swelling in your face, hands, legs, or ankles. SEEK IMMEDIATE MEDICAL CARE IF: ? You have a fever. ? You are leaking fluid from your vagina. ? You have spotting or bleeding from your vagina. ? You have severe abdominal cramping or pain. ? You have rapid weight gain or loss. ? You vomit blood or material that looks like coffee grounds. ? You are exposed to [place] measles and have never had them. ? You are exposed to fifth disease or chickenpox. ? You develop a severe headache. ? You have shortness of breath. ? You have any kind of trauma, such as from a fall or a car accident. This information is not intended to replace advice given to you by your health care provider. Make sure you discuss any questions you have with your health care provider. Document Released: 03/24/2002 Document Revised: 04/20/2015 Document Reviewed: 02/07/2014 [employer] Interactive Patient Education ? 2017 [employer]. Viruses or Bacteria What?s got you sick? Antibiotics only treat bacterial infections. Viral illnesses cannot be treated with antibiotics. When an antibiotic is not prescribed, ask your healthcare professional for tips on how to relieve symptoms and feel better. Usual Cause Illness Viruses Bacteria Antibiotic Needed Cold/Runny Nose NO Bronchitis/Chest Cold (in otherwise healthy children and adults) NO Whooping Cough Yes Flu NO Strep Throat Yes Sore Throat (except strep) NO Fluid in the middle ear (otitis media with effusion) NO Urinary Tract Infection Yes Antibiotics Aren?t Always the Answer www.cdc.gov/getsmart GET SMART Know When Antibiotics Work U.S. Department of Health and Human Services Centers for Disease Control and Prevention December 2013 ED CLINICAL SUMMARY Observed: 06/14/2017 Status: F Source: [facility] 8:48 PM HOSPITAL REPOSITORY [facility] - Emergency Department [address] [place], [place] [id number] ED Clinical Summary PERSON INFORMATION Name: KEENAN VENTURA Age: 22 Years Sex: MALE : [birth year] MRN: Acct#: Visit Reason: General medical; BREAST TENDERNESS, INCREASED APPETITE Arrival: 06/14/17 18:27:00 Discharge: 06/14/17 20:47:00 LOS: 000 02:20 Check In: 06/14/17 18:27:00 Checkout:06/14/17 20:47:00 Address: [address] [place], [place] [id number] PCP: Provider, None PROVIDER INFORMATION Provider Role Assigned Unassigned Cecelia Trevino ED PA 06/14/17 18:30:03 Rebecca Quintero GREASE PRESS HELPER Nurse 06/14/17 18:55:16 Maggie Ballesteros ED Nurse 06/14/17 19:33:11 VITALS INFORMATION Vital Sign Triage Latest Temperature Tympanic Temperature Temporal Artery Pulse Rate 96 bpm 96 bpm O2 Sat 99 % 99 % Respiratory Rate 16 br/min 16 br/min Blood Pressure 102 mmHg/40 mmHg 102 mmHg/40 mmHg MEDICAL INFORMATION Medications Given: Allergy Information: sulfa drugs; Percocet 5/325; Trimox PHYSICIAN DOCUMENTATION DISCHARGE INFORMATION: Discharge Disposition: Home Discharge Location: Home PATIENT EDUCATION INFORMATION Instructions: First Trimester of Follow-Up: With: Address: When: Consuelo Mejia Within 3 to 5 days With: Address: When: YURI DOTY [address] [place] [address]. [address] [place], [place] [id number] Business (8) Within 3 to 5 days DIAGNOSIS: Currently Comment: EXTRA BLUE Collected: 06/14/2017 Status: F Source: [facility] 7:49 PM HOSPITAL REPOSITORY TYPE CODE TESTS RESULT OUT OF RANGE REFERENCE UNITS LAB [id number] (LOINC) Unknown Tube Collected Yes Performed By: #### [id number] #### [facility] (DEFAULT) [address] [place] [address] EXTRA GREEN Collected: 06/14/2017 Status: F Source: [facility] 7:49 PM HOSPITAL REPOSITORY TYPE CODE TESTS RESULT OUT OF RANGE REFERENCE UNITS LAB [id number] (LOINC) Unknown Tube Collected Yes Performed By: #### [id number] #### [facility] (DEFAULT) [address] [place] [id number] EXTRA LAV Collected: 06/14/2017 Status: F Source: [facility] 7:49 PM HOSPITAL REPOSITORY TYPE CODE TESTS RESULT OUT OF RANGE REFERENCE UNITS LAB [id number] (LOINC) Unknown Tube Collected Yes Performed By: #### [id number] #### [facility] (DEFAULT) [address] [place] [id number] EXTRA LAV Collected: 06/14/2017 Status: F Source: [facility] 7:49 PM HOSPITAL REPOSITORY TYPE CODE TESTS RESULT OUT OF RANGE REFERENCE UNITS LAB [id number] (LOINC) Unknown Tube Collected Yes Performed By: #### [id number] #### [facility] (DEFAULT) [address] [place] [id number] TEST SERUM 1 Collected: 06/14/2017 Status: F Source: [facility] 7:46 PM HOSPITAL REPOSITORY TYPE CODE TESTS RESULT OUT OF REFERENCE UNITS RANGE LAB [id number](LO INC) Test Positive Serum Qual LAB [id number]( LOINC) Preg OK Serum Internal Control Performed By: #### [id number] #### [facility] (DEFAULT) [address] [place], [place] [id number] ED NOTE - PHYSICIAN Observed: 06/14/2017 Status: F Source: [facility] 6:53 PM HOSPITAL REPOSITORY Patient: KEENAN VENTURA Age: 22 years Sex: MALE : [birth year] Associated Diagnoses: Currently Author: Cecelia Trevino Basic Information Time seen: Date & time 06/14/17 18:53:00. History source: Patient. Arrival mode: Private vehicle. History limitation: None. Additional information: Chief Complaint from Nursing Triage Note : Chief Complaint 06/14/17 18:40 EST Chief Complaint I need a test. . History of Present Illness 22-year-old female presents to emergency department complaining of a feeling as if she is . She states she's been tired and has had some nausea. Last menstrual period was May 16. She jeanne es abdominal pain or cramping. She states she took several urine test at home somewhere positive and someone negative and she just wants definitive results. Review of Systems Constitutional symptoms: No fever, no chills, no weakness, no decreased activity. Skin symptoms: No rash, no abrasions, no breakdown. Eye symptoms: Negative except as documented in HPI. ENMT symptoms: No ear pain, no sore throat, no nasal congestion, no sinus pain. Respiratory symptoms: No shortness of breath, no cough, no stridor, no wheezing. Cardiovascular symptoms: No chest pain, no tachycardia. Gastrointestinal symptoms: Nausea, vomiting, no abdominal pain, no diarrhea, no constipation. Genitourinary symptoms: No dysuria, no hematuria. Musculoskeletal symptoms: Negative except as documented in HPI. Neurologic symptoms: No headache, no dizziness, no numbness, no tingling. Psychiatric symptoms: Negative except as documented in HPI. Endocrine symptoms: Negative except as documented in HPI. Hematologic/Lymphatic symptoms: Negative except as documented in HPI. Allergy/immunologic symptoms: No seasonal allergies, no food allergies, no recurrent infections. Additional review of systems information: All other systems reviewed and otherwise negative. Health Status Allergies: No active allergies have been recorded.. Past Medical/ Family/ Social History Medical history: No active or resolved past medical history items have been selected or recorded.. Surgical history: No active procedure history items have been selected or recorded.. Family history: No family history items have been selected or recorded.. Social history: Social & Psychosocial Habits No Data Available . Problem list: No qualifying data available . Physical Examination Vital Signs Vital Signs 06/14/17 18:40 EST Temperature Temporal 36.4 DegC Peripheral Pulse Rate 96 bpm Respiratory Rate 16 br/min Systolic Blood Pressure 102 mmHg Diastolic Blood Pressure 40 mmHg LOW SpO2 99 % Oxygen Therapy Room air . General: Alert, no acute distress. Skin: Warm, dry, pink, intact. Head: Normocephalic, atraumatic. Ears, nose, mouth and throat: Oral mucosa moist. Respiratory: Respirations are non-labored, Symmetrical chest wall expansion. Neurological: Alert and oriented to person, place, time, and situation, normal motor observed, normal speech observed. Psychiatric: Cooperative, appropriate mood & affect. Medical Decision Making Differential Diagnosis: symptoms, Morning sickness. Orders Launch Orders Laboratory: HcG Qual 1 (Serum) (Order): Blood, Stat collect, 06/14/17 18:57 EST, Lab Collect. Results review: Lab results : Lab Flowsheet 06/14/17 19:46 EST Test Serum Qual Positive . Impression and Plan Diagnosis Currently (ZOC24-IP Z34.90, Discharge, Medical) Plan Condition: Stable. Disposition: Discharged: Time 06/14/17 20:37:00, to home. Patient was given the following educational materials: First Trimester of . Follow up with: ; YURI DOTY Within 3 to 5 days; Consuelo Mejia Within 3 to 5 days. Counseled: Patient, Regarding diagnosis, Regarding diagnostic results, Regarding treatment plan, Regarding prescription. Notes: This young lady presented to the emergency department complaining of sinus symptoms of early . She taken several urine test home and someone negative and somewhat positive and she wante d definitive results. Serum hCG is positive. Patient is complaining of some symptoms of morning sickness. I discussed use of a jerrica wilbur, crackers and certain dietary things to help these symptoms. She has recently relocated to the [facility] from [facility] and is referred to MAID SUPERVISOR for follow-up.. [Electronically Signed on: 06/14/2017 20:52 EST] Cecelia Trevino [Electronically Signed on: 06/17/2017 15:19 EST] Randell Zarate MD [Verified on: 06/14/2017 20:52 EST] Cecelia Trevino OBSOLETE Observed: 06/11/2017 Status: COMPLETED Source: [place] 12:00 AM [facility] REPOSITORY Refill (AGFAMPLE) KEENAN GUILLEN ([id number]) 1995 F SHANICE Date Time Provider Department 06/11/17 INDU CALHOUN During your visit today, we recorded the following information about you: Marcella Roque CMA 06/12/2017 9:03 AM Signed Last seen 05/15/17. Pharmacy electronically requests the following refill(s) Pending Prescriptions Disp Refills OMEPRAZOLE 20 MG CAPSULE,DELAYED RELEASE 30 capsule 3 Sig: Take 1 capsule by mouth once daily. SANJEEV: No Marcella Jude, [employer]ES CONSULTANT Allergies As of Date: 06/11/2017 Noted Allergy Reaction PERCOCET (OXYCODONE-ACETAMINOPHEN)05/28/2015 4 - Hives SULFA (SULFONAMIDE ANTIBIOTICS) 01/05/2013 2 - Rash TRIMOX (AMOXICILLIN) 01/05/2013 7 - Swelling Date Reviewed: 05/21/2017 Reviewed by: Letty (Rn) DILLAN Metzger - Fully Assessed Reason for Visit: Refill Request [94] Order(s):omeprazole (PRILOSEC) 20 mg capsuleTake 1 capsule by mouth once daily.Disp: 30 capsuleRfl: 3 Prescriptions as of 06/11/2017 Sig: OMEPRAZOLE 20 MG CAPSULE,LESLIE* Take 1 capsule by mouth once * MOXIFLOXACIN 0.5 % EYE DROPS Use 2 Drops in the left eye f* AZITHROMYCIN 250 MG TABLET 2 tablets by mouth first day * IBUPROFEN 800 MG TABLET Take 1 tablet by mouth every * Problem List As Of Date 06/11/2017 Noted Resolved Sinusitis, acute [J01.90] INVALID FOR*05/30/2015 Tonsillitis [J03.90] INVALID FOR*05/30/2015 Finger fracture [S62.609A] INVALID FOR*05/30/2015 Supervision of normal first [Z34.00] INVALID FOR*05/30/2015 Gallbladder sludge [K82.8] INVALID FOR* False labor [O47.9] INVALID FOR*05/30/2015 Amniotic cavity/membrane problem suspected but *INVALID FOR*05/30/2015 Decreased movement [O36.8190] INVALID FOR*05/30/2015 Decreased movement in in third *INVALID FOR*05/30/2015 39 weeks gestation of [Z3A.39] INVALID FOR*05/30/2015 Vaginal bleeding in [O46.90] INVALID FOR*05/30/2015 False labor after 37 completed weeks of gestati*INVALID FOR*05/30/2015 40 weeks gestation of [Z3A.40] INVALID FOR*05/30/2015 Post-dates [O48.0] INVALID FOR*05/30/2015 Arrested active phase of labor [O62.1] INVALID FOR*05/30/2015 Meconium in amniotic fluid noted in labor/deliv*INVALID FOR*05/30/2015 Malpresentation of fetus [O32.9XX0] INVALID FOR*05/30/2015 Bipolar 1 disorder (HCC) [F31.9] INVALID FOR* Depression [F32.9] INVALID FOR* Anxiety [F41.9] INVALID FOR* Current tobacco use [Z72.0] INVALID FOR*05/15/2017 Smoker [F17.200] INVALID FOR* Urticaria [L50.9] INVALID FOR* Prescriptions ordered this encounter Disp Refills Start End OMEPRAZOLE 20 MG CAPSULE,DELAYED REL* 30 c* 3 06/12/2017 Route: ORAL Sig: Take 1 capsule by mouth once daily. Medications Discontinued During This Encounter omeprazole (PRILOSEC) 20 mg capsule 30 c* 0 05/15/2017 06/12/2017 Route: ORAL Sig: Take 1 capsule by mouth once daily. Disc: Reason for discontinue is not on file. Encounter Status:Closed by INDU CALHOUN DO on 06/12/17 Observed: 05/21/2017 Status: F Source: [facility]/GC-DNA AMPLIFIED 7:05 PM HEALTH SYSTEM REPOSITORY Test performed at [facility] Chlamydia trachomatis DNA NOT DETECTED Neisseria gonorrhoeae DNA NOT DETECTED Reference range NOT DETECTED Method: Strand Displacement Amplification-BD ProbeTec Assay Comment: A negative result does not preclude C.trachomatis or N. gonorrhoeae infection because results are dependent on adequate specimen collection, absence of inhibitors, and sufficient DNA to be detected. Performed By: #### CTGCA #### [facility] [address] [address] ED PROV NOTE Observed: 05/21/2017 Status: COMPLETED Source: [place] 6:47 PM [facility] RE[facility]IT[facility] HNO ID: [id number] Author: Adriana Quevedo DO Service: Emergency Medicine Author Type: Physician Type: ED Provider Notes Filed: 05/21/2017 7:03 PM Note Text: ED Provider Note Patient Name: Keenan Ventura SERVICE DATE: 05/21/17 History Patient presents with: Eye Complaint HPI Comments: Patient states she has had conjunctivitis of her left eye for 2 weeks. She has seen her primary physician and has been treated with prescribed antibiotic ointment and drops. She states that there has been no improvement. She is here yesterday and seen in the emergency department and was given 1 g of azithromycin to cover for chlamydia, she states that she was told her ex-boyfriends girlfriend had chlamydia, and the patient states that she slept with her ex-2 months ago. Patient states that she just got , but has not yet had sex with her new and states she has not slept with anyone since she slept with her ex 2 months ago. She states she has no vaginal discharge she is aware of, she states she is currently on her period. She states her vision is blurry due to the discharge in her eyes and her eyes being watery, she states this has been consistent over the past 2 weeks. No pain with eye movements. No loss of vision. She states today she wiped her eye and there was yellow-green discharge and then there was some bleeding that she noted, that's what prompted her to come back in today. Patient is a 22 year old female presenting with conjunctivitis. 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 The onset was gradual. The problem occurs continuously. The problem has been gradually worsening. The problem is moderate. Nothing relieves the symptoms. Nothing aggravates the symptoms. Associated symptoms include eye itching, eye discharge, eye pain (irritation) and eye redness. Pertinent negatives include no fever, no decreased vision, no double vision, no photophobia, no abdominal pain, no vomiting, no congestion, no headaches, no mouth sores, no sore throat, no neck pain, no neck stiffness, no cough, no URI and no rash. The eye pain is moderate. The left eye is affected. The eye pain is not associated with movement. The eyelid exhibits no abnormality. Sick contacts: she was told her ex-boyfriend's girlfriend is and had chlamydia. She last slept with her ex 2 months ago. She has not had sex with anyone since then. Recently, medical care has been given by the PCP and at this facility (PCP has been treating with antibiotic eye drops for conjunctivits. She was here yesterday and given Azithromycin 1gm for chlamydia.). Services received include medications given. PAST MEDICAL HISTORY Diagnosis Date - Anxiety - Bipolar 1 disorder (HCC) - Cigarette smoker continue to try to quit smoking - Depression - Gallbladder sludge 11/03/2014 - GERD (gastroesophageal reflux disease) - Irregular menses - Migraine - Migraine continue ibuprofen prn - PTSD (post-traumatic stress disorder) - Ulcer PAST SURGICAL HISTORY Procedure Laterality Date - SECTION HX - CHOLECYSTECTOMY HX - EGD - EXC INGROWN TOE NAIL REMOVAL - EXTRACTION ERUPTED TOOTH/EXR wisdom teeth - PAST SURGICAL HISTORY OF foot surgery - REMOVAL GALLBLADDER 06/07/2015 FAMILY HISTORY Problem Relation Age of Onset - Hypertension Mother - Lipids Mother - Heart Mother - Psychiatry Mother bipolar - COPD Mother - Hyperlipidemia Mother - bipolar disorder [OTHER] Mother - depressive disorder [OTHER] Mother - smoking tobacco [OTHER] Mother - smoking tobacco [OTHER] Father - Collagen disease Maternal Grandfather - Ischemic Heart Disease Maternal Grandfather - Ischemic Heart Disease Maternal Grandmother - Stroke Maternal Grandmother - Diabetes Maternal Grandmother Social History Social History Main Topics - Smoking status: Current Every Day Smoker Packs/day: 0.50 Types: Cigarettes Start date: 05/30/2006 - Smokeless tobacco: Never Used - Alcohol use Yes Comment: rarely - Drug use: 1.00 per week Special: Marijuana Comment: denies other illegal drug use - Sexual activity: Yes Partners: Male ALLERGIES Allergen Reactions - Percocet [Oxycodone* Hives - Sulfa (Sulfonamide * Rash - Trimox [Amoxicillin] Swelling Review of Systems Constitutional: Negative for chills and fever. HENT: Negative for congestion, mouth sores, sore throat and trouble swallowing. Eyes: Positive for pain (irritation), discharge, redness and itching. Negative for double vision and photophobia. Respiratory: Negative for cough. Gastrointestinal: Negative for abdominal pain and vomiting. Genitourinary: Negative for pelvic pain and vaginal discharge. Musculoskeletal: Negative for joint swelling, neck pain and neck stiffness. Skin: Negative for rash. Allergic/Immunologic: Negative for immunocompromised state. Neurological: Negative for headaches. Psychiatric/Behavioral: Negative for agitation and confusion. Physical Exam BP 131/78 Pulse 113 Temp (Src) 97.7 (Left Tympanic) Resp 18 Ht 4' 11 (1.50m) Wt 138 lb (62.6kg) SpO2 100% LMP 05/16/2017 BMI 27.86 kg/(m2). Physical Exam Constitutional: She is oriented to person, place, and time. She appears well-developed and well-nourished. No distress. HENT: Head: Normocephalic and atraumatic. Right Ear: External ear normal. Left Ear: External ear normal. Mouth/Throat: Oropharynx is clear and moist. Eyes: EOM are normal. Pupils are equal, round, and reactive to light. Right eye exhibits no discharge. Left eye exhibits chemosis and discharge. Left eye exhibits no exudate. No foreign body present in the left eye. Right conjunctiva is not injected. Right conjunctiva has no hemorrhage. Left conjunctiva is injected. Left conjunctiva has no hemorrhage. No scleral icterus. Right eye exhibits normal extraocular motion. Left eye exhibits normal extraocular motion. There is chemosis of the lower eyelid conjunctiva with small linear area of blood in the lateral lower eyelid conjunctiva. No active bleeding. There is watery discharge, but no thick or colored discharge. Neck: Normal range of motion. Neck supple. No JVD present. Cardiovascular: Normal rate and regular rhythm. Pulmonary/Chest: Effort normal and breath sounds normal. No stridor. No respiratory distress. Neurological: She is alert and oriented to person, place, and time. No cranial nerve deficit. Skin: Skin is warm and dry. No rash noted. Psychiatric: She has a normal mood and affect. Her behavior is normal. Nursing note and vitals reviewed. Diagnostic Testing ED Labs Ordered and Reviewed - No data to display Procedures Medical Decision Making / ED Course ED Course Patient has had persistent conjunctivitis for 2 weeks. Per the patient there's been no improvement with the antibiotic eye ointment and drops. She was treated yesterday with 1 g of azithromycin for chlamydia, I discussed also treating her for gonorrhea and she states that she thinks she's had Keflex before, and is okay with receiving Rocephin. I will also put her on Vigamox antibiotic eyedrops and I stressed the importance to follow up with ophthalmology. I have given a referral to ophthalmology and discussed she needs to be seen and evaluated by them due to the length that this has been going on. I also did send a swab for gonorrhea and chlamydia, as this was not sent yesterday. I instructed the patient to return to the emergency department for new or worsening symptoms and to follow-up with with ophthalmology and primary physician. Patient is nontoxic-appearing, smiling, no distress, ambulates in the emergency department without any difficulty. Encounter Diagnosis ICD-10-CM 1. Conjunctivitis of left eye, unspecified conjunctivitis type H10.9 Plan The Patient was DISCHARGED: Counseled patient regarding suspected diagnosis AND need for follow-up. Discharged home with verbal and written instructions. They were instructed to return as needed for persistent or worsening symptoms or any new concerns. Condition at time of disposition: stable SIGNATURE: Adriana Quevedo, DO Adriana Quevedo DO 05/21/17 1903 ED NOTE Observed: 05/21/2017 Status: COMPLETED Source: [place] 6:33 PM [facility] REPOSITORY HNO ID: [id number] Author: Letty (Rn) DILLAN Metzger Service: Emergency Medicine Author Type: Registered Nurse Type: ED Notes Filed: 05/21/2017 6:34 PM Note Text: Patient states she was here yesterday for infection in eye, today noticed drainage when she whipped the drainage yellow d/c came out and since then pain has been worse. ED NOTE Observed: 05/20/2017 Status: COMPLETED Source: [place] 7:48 PM [facility] REPOSITORY HNO ID: [id number] Author: Nadja (Rn) DILLAN Velasquez Service: Emergency Medicine Author Type: Registered Nurse Type: ED Notes Filed: 05/20/2017 7:50 PM Note Text: Assumed care for discharge. PO meds per order. Pt is AANDO, wdp, resps even and unlabored, relaxed expression and posture. Dc isntr to fu w pmd. Emphasized that care in not complete until she follows up with a physician. Pt verb und, agreeable to plan. ED PROV NOTE Observed: 05/20/2017 Status: COMPLETED Source: [place] 7:35 PM [facility] REPOSITORY HNO ID: [id number] Author: Nemesio Garcia MD Service: Emergency Medicine Author Type: Physician Type: ED Provider Notes Filed: 05/20/2017 7:40 PM Note Text: ED Provider Note Patient Name: Keenan Ventura SERVICE DATE: 05/20/17 History Patient presents with: Eye Complaint Patient presents with pinkeye of 25 weeks duration and failure to courses of outpatient antibiotics. She is convinced that he could be chlamydial in origin. Apparently she was involved in some type of the cheating relationship and at least one sexual partner in this relationship has been diagnosed with chlamydia. No fevers or chills. No nausea, vomiting, diarrhea. No vaginal discharge or bleeding. 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 used: No PAST MEDICAL HISTORY Diagnosis Date - Anxiety - Bipolar 1 disorder (HCC) - Cigarette smoker continue to try to quit smoking - Depression - Gallbladder sludge 11/03/2014 - GERD (gastroesophageal reflux disease) - Irregular menses - Migraine - Migraine continue ibuprofen prn - PTSD (post-traumatic stress disorder) - Ulcer PAST SURGICAL HISTORY Procedure Laterality Date - SECTION HX - CHOLECYSTECTOMY HX - EGD - EXC INGROWN TOE NAIL REMOVAL - EXTRACTION ERUPTED TOOTH/EXR wisdom teeth - PAST SURGICAL HISTORY OF foot surgery - REMOVAL GALLBLADDER 06/07/2015 FAMILY HISTORY Problem Relation Age of Onset - Hypertension Mother - Lipids Mother - Heart Mother - Psychiatry Mother bipolar - COPD Mother - Hyperlipidemia Mother - bipolar disorder [OTHER] Mother - depressive disorder [OTHER] Mother - smoking tobacco [OTHER] Mother - smoking tobacco [OTHER] Father - Collagen disease Maternal Grandfather - Ischemic Heart Disease Maternal Grandfather - Ischemic Heart Disease Maternal Grandmother - Stroke Maternal Grandmother - Diabetes Maternal Grandmother Social History Social History Main Topics - Smoking status: Current Every Day Smoker Packs/day: 0.50 Types: Cigarettes Start date: 05/30/2006 - Smokeless tobacco: Never Used - Alcohol use Yes Comment: rarely - Drug use: 1.00 per week Special: Marijuana Comment: denies other illegal drug use - Sexual activity: Yes Partners: Male ALLERGIES Allergen Reactions - Percocet [Oxycodone* Hives - Sulfa (Sulfonamide * Rash - Trimox [Amoxicillin] Swelling Review of Systems Eyes: Positive for photophobia, pain, discharge and redness. Negative for itching and visual disturbance. All other systems reviewed and are negative. Physical Exam BP 105/75 Pulse 98 Resp 16 Ht 4' 11 (1.50m) Wt 138 lb (62.6kg) SpO2 100% LMP 05/16/2017 BMI 27.86 kg/(m2). Physical Exam Constitutional: She appears well-developed and well-nourished. HENT: No preauricular lymph nodes Eyes: Pupils are equal, round, and reactive to light. Left eye exhibits discharge. No scleral icterus. Left thigh has some purulent-appearing discharge and diffuse conjunctival injection. There is also some swelling of the eyelid. Extraocular movements does not increase her pain. Earache reactive to light. Musculoskeletal: She exhibits no edema, tenderness or deformity. Vitals reviewed. Diagnostic Testing ED Labs Ordered and Reviewed - No data to display Procedures Medical Decision Making / ED Course ED Course This patient has already failed 2 courses of antibiotics for bacterial conjunctivitis. Its chronicity makes me doubt that we are dealing with a viral conjunctivitis. We will treat her with azithromycin 1 g encouraged warm compresses and follow-up with ophthalmology if no improvement Encounter Diagnosis ICD-10-CM 1. Chlamydial conjunctivitis A74.0 Plan The Patient was DISCHARGED: Counseled patient and family regarding suspected diagnosis AND need for follow-up. Discharged home with verbal and written instructions. They were instructed to return as needed for persistent or worsening symptoms or any new concerns. Condition at time of disposition: stable SIGNATURE: MD Nemesio Norwood MD 05/20/17 1940 ED NOTE Observed: 05/20/2017 Status: COMPLETED Source: [place] 5:48 PM [facility] REPOSITORY HNO ID: [id number] Author: La Melendez (Rn) DILLAN Nolen Service: Emergency Medicine Author Type: Registered Nurse Type: ED Notes Filed: 05/20/2017 5:49 PM Note Text: Pt reports left eye redness and drainage, concerned with exposure to chlamydia PROGRESS Observed: 05/15/2017 Status: COMPLETED Source: [place] 11:06 AM [facility] REPOSITORY HNO ID: [id number] Author: Indu Calhoun Service: (none) Author Type: Physician Type: Progress Notes Filed: 05/15/2017 11:26 AM Note Text: Patient is a 22 year old female presenting with sore throat. The history is provided by the patient. Sore Throat This is a new problem. The current episode started yesterday. The problem has been gradually worsening. Neither side of throat is experiencing more pain than the other. The maximum temperature recorded prior to her arrival was 100.4 - 100.9 F. The fever has been present for 1 to 2 days. The pain is at a severity of 10/10. The pain is severe. Associated symptoms include congestion, coughing, ear pain (b/l ear pain) and trouble swallowing. Pertinent negatives include no abdominal pain, diarrhea, drooling, ear discharge, headaches, hoarse voice, plugged ear sensation, neck pain, shortness of breath, stridor, swollen glands or vomiting. Pt was seen in the ER last week for left eye conjunctivitis. She was treated with polysporin ophthalmic for the left eye. She used it for about one week, but her left eye is not better, and now she is starting to have pain and burning in both eyes. She was given prednisone for hives on the same day, and has one week of that medication left. She has hives on her arms, but they are improving. She had ulcers and was on omeprazole. She has had heartburn, made worse with eating meat, and she would like to restart that med. She was under the care of [facility] for anxiety and bipolar disorder. She stopped seeing them in 2013. She was on depakote for bipolar disorder. She is crying all the time. She does not feel sad, just stressed. Review of Systems Constitutional: Positive for chills, fever and malaise/fatigue. Negative for diaphoresis and weight loss. HENT: Positive for congestion, ear pain (b/l ear pain), sore throat and trouble swallowing. Negative for drooling, ear discharge, hearing loss and hoarse voice. Eyes: Positive for pain, discharge and redness. Negative for blurred vision and double vision. Respiratory: Positive for cough. Negative for shortness of breath and stridor. Cardiovascular: Negative for chest pain, palpitations and leg swelling. Gastrointestinal: Negative for abdominal pain, constipation, diarrhea, heartburn and vomiting. Genitourinary: Negative for dysuria and frequency. Musculoskeletal: Negative for back pain, falls, joint pain, myalgias and neck pain. Skin: Positive for rash (hives over arms b/l). Negative for itching. Neurological: Negative for dizziness, weakness and headaches. Endo/Heme/Allergies: Does not bruise/bleed easily. Psychiatric/Behavioral: Negative for depression and substance abuse. The patient does not have insomnia. BP 96/62 Pulse 112 Temp 38.1 ?C (100.6 ?F) (Oral) Resp 16 Wt 62.8 kg (138 lb 6.4 oz) BMI 27.95 kg/m2 Physical Exam Constitutional: She is oriented to person, place, and time and well-developed, well-nourished, and in no distress. HENT: Head: Normocephalic and atraumatic. Right Ear: Hearing, tympanic membrane, external ear and ear canal normal. Left Ear: Hearing, tympanic membrane, external ear and ear canal normal. Nose: Mucosal edema and rhinorrhea present. Mouth/Throat: Uvula is midline. Normal dentition. Oropharyngeal exudate, posterior oropharyngeal edema and posterior oropharyngeal erythema present. Eyes: EOM are normal. Pupils are equal, round, and reactive to light. Right conjunctiva is injected. Right conjunctiva has no hemorrhage. Left conjunctiva is injected. Left conjunctiva has no hemorrhage. Neck: Normal range of motion and phonation normal. Neck supple. Carotid bruit is not present. No edema present. No thyroid mass and no thyromegaly present. Cardiovascular: Normal rate, regular rhythm, normal heart sounds and intact distal pulses. Exam reveals no gallop and no friction rub. No murmur heard. Pulmonary/Chest: Effort normal and breath sounds normal. She has no wheezes. She has no rales. Abdominal: Soft. Normal appearance and bowel sounds are normal. She exhibits no distension and no mass. There is no tenderness. Musculoskeletal: Normal range of motion. She exhibits no edema or tenderness. Lymphadenopathy: She has no cervical adenopathy. Neurological: She is alert and oriented to person, place, and time. She has normal motor skills. No cranial nerve deficit. Gait normal. Coordination normal. Skin: Skin is warm and dry. No rash noted. No cyanosis or erythema. Nails show no clubbing. Psychiatric: Mood, affect and judgment normal. ASSESSMENT/PLAN: 1. Pharyngitis, unspecified etiology - ICD9: 462, ICD10: J02.9 (primary diagnosis) Strep negative, will send culture - AZITHROMYCIN 250 MG TABLET Rx for motrin 800 mg 2. Smoker - ICD9: 305.1, ICD10: F17.200 Encouraged pt to quit 3. Fever and chills - ICD9: 780.60, ICD10: R50.9 Strep negative 4. Urticaria - ICD9: 708.9, ICD10: L50.9 Stop prednisone 5. Acute bacterial conjunctivitis of both eyes - ICD9: 372.03, ICD10: H10.33 - AZITHROMYCIN 250 MG TABLET - TOBRAMYCIN 0.3 % EYE DROPS 6. Indigestion - ICD9: 536.8, ICD10: K30 - OMEPRAZOLE 20 MG CAPSULE,DELAYED RELEASE Indu Calhoun DO Observed: 05/15/2017 Status: F Source: [facility] THROAT CULTURE 11:00 AM HEALTH SYSTEM REPOSITORY Test performed at [facility] No group A beta streptococci cultured. Performed By: #### CTHRT #### [facility] [address] [address] CNOV Observed: 05/15/2017 Status: COMPLETED Source: [place] 10:30 AM [facility] REPOSITORY Office Visit (AGFAMPLE) KEENAN GUILLEN ([id number]) 1995 F [facility] Date Time Provider Department 05/15/17 10:30 AM INDU CALHOUN During your visit today, we recorded the following information about you: Temperature Pulse Respiration Blood pressure 100.6 degrees 112/minute 16/minute 96/62 Weight 62.8 kg Marcella Roque CMA 05/15/2017 10:48 AM Signed Patient complains of sore throat, bilateral ear pain along with possible bilateral [place] eye. Was in ER last week and tx eyes, but not working. Along with prednisone and is still taking. SX x one week. CIRO Hughes DO 05/15/2017 11:26 AM Signed Patient is a 22 year old female presenting with sore throat. The history is provided by the patient. Sore Throat This is a new problem. The current episode started yesterday. The problem has been gradually worsening. Neither side of throat is experiencing more pain than the other. The maximum temperature recorded prior to her arrival was 100.4 - 100.9 F. The fever has been present for 1 to 2 days. The pain is at a severity of 10/10. The pain is severe. Associated symptoms include congestion, coughing, ear pain (b/l ear pain) and trouble swallowing. Pertinent negatives include no abdominal pain, diarrhea, drooling, ear discharge, headaches, hoarse voice, plugged ear sensation, neck pain, shortness of breath, stridor, swollen glands or vomiting. Pt was seen in the ER last week for left eye conjunctivitis. She was treated with polysporin ophthalmic for the left eye. She used it for about one week, but her left eye is not better, and now she is starting to have pain and burning in both eyes. She was given prednisone for hives on the same day, and has one week of that medication left. She has hives on her arms, but they are improving. She had ANDquot;ulcersANDquot; and was on omeprazole. She has had heartburn, made worse with eating meat, and she would like to restart that med. She was under the care of [facility] for anxiety and bipolar disorder. She stopped seeing them in 2013. She was on depakote for bipolar disorder. She is crying ANDquot;all the time.ANDquot; She does not feel sad, just stressed. Review of Systems Constitutional: Positive for chills, fever and malaise/fatigue. Negative for diaphoresis and weight loss. HENT: Positive for congestion, ear pain (b/l ear pain), sore throat and trouble swallowing. Negative for drooling, ear discharge, hearing loss and hoarse voice. Eyes: Positive for pain, discharge and redness. Negative for blurred vision and double vision. Respiratory: Positive for cough. Negative for shortness of breath and stridor. Cardiovascular: Negative for chest pain, palpitations and leg swelling. Gastrointestinal: Negative for abdominal pain, constipation, diarrhea, heartburn and vomiting. Genitourinary: Negative for dysuria and frequency. Musculoskeletal: Negative for back pain, falls, joint pain, myalgias and neck pain. Skin: Positive for rash (hives over arms b/l). Negative for itching. Neurological: Negative for dizziness, weakness and headaches. Endo/Heme/Allergies: Does not bruise/bleed easily. Psychiatric/Behavioral: Negative for depression and substance abuse. The patient does not have insomnia. BP 96/62 Pulse 112 Temp 38.1 ?C (100.6 ?F) (Oral) Resp 16 Wt 62.8 kg (138 lb 6.4 oz) BMI 27.95 kg/m2 Physical Exam Constitutional: She is oriented to person, place, and time and well-developed, well-nourished, and in no distress. HENT: Head: Normocephalic and atraumatic. Right Ear: Hearing, tympanic membrane, external ear and ear canal normal. Left Ear: Hearing, tympanic membrane, external ear and ear canal normal. Nose: Mucosal edema and rhinorrhea present. Mouth/Throat: Uvula is midline. Normal dentition. Oropharyngeal exudate, posterior oropharyngeal edema and posterior oropharyngeal erythema present. Eyes: EOM are normal. Pupils are equal, round, and reactive to light. Right conjunctiva is injected. Right conjunctiva has no hemorrhage. Left conjunctiva is injected. Left conjunctiva has no hemorrhage. Neck: Normal range of motion and phonation normal. Neck supple. Carotid bruit is not present. No edema present. No thyroid mass and no thyromegaly present. Cardiovascular: Normal rate, regular rhythm, normal heart sounds and intact distal pulses. Exam reveals no gallop and no friction rub. No murmur heard. Pulmonary/Chest: Effort normal and breath sounds normal. She has no wheezes. She has no rales. Abdominal: Soft. Normal appearance and bowel sounds are normal. She exhibits no distension and no mass. There is no tenderness. Musculoskeletal: Normal range of motion. She exhibits no edema or tenderness. Lymphadenopathy: She has no cervical adenopathy. Neurological: She is alert and oriented to person, place, and time. She has normal motor skills. No cranial nerve deficit. Gait normal. Coordination normal. Skin: Skin is warm and dry. No rash noted. No cyanosis or erythema. Nails show no clubbing. Psychiatric: Mood, affect and judgment normal. ASSESSMENT/PLAN: 1. Pharyngitis, unspecified etiology - ICD9: 462, ICD10: J02.9 (primary diagnosis) Strep negative, will send culture - AZITHROMYCIN 250 MG TABLET Rx for motrin 800 mg 2. Smoker - ICD9: 305.1, ICD10: F17.200 Encouraged pt to quit 3. Fever and chills - ICD9: 780.60, ICD10: R50.9 Strep negative 4. Urticaria - ICD9: 708.9, ICD10: L50.9 Stop prednisone 5. Acute bacterial conjunctivitis of both eyes - ICD9: 372.03, ICD10: H10.33 - AZITHROMYCIN 250 MG TABLET - TOBRAMYCIN 0.3 % EYE DROPS 6. Indigestion - ICD9: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 [facility] Date:2017-10-19 - [place] [id number] [address]Dxd: (330) Name:Self Rpe607 [phone] [facility] ()Tel: [phone]) [phone]: [phone] () [phone] 07/21/2017 Keenan ShadiDOB: Primary Keenan ShadiDOB: [facility] Insurance:[facility] [id number] [facility] [address] licy Number: Effective Repository [place], [place] Date: [address]Udf: () 07/10/2017 Keenan ShadiDOB: Primary Keenan ShadiDOB: [facility] Insurance:[facility] [id number] [facility] [address] licy Number: Effective Repository [place], [place] Date: [address]Vta: () 06/17/2017 KEENAN CALVIN Primary KEENAN CALVIN Hannah SHADIDOB: Insurance:MEDICAID SHADIDOB: Hospital [facility] [id number] Repository ALE Number: [place], [id number], [place] [address]Uoq: Date:2017-06-15 [place] [address]Izf: [id number] (HP) Name:Medicaid [facility] ()Tel: (000) [address], [place] 000-[address] () [address]GN: 06/17/2017 Secondary KEENAN CALVIN Hannah Insurance:SELF PAY SHADIDOB: Hospital AFTER INSURANCEPolicy [id number] Repository Number: ABCEffectadonay AGUILERA Date:2017-06-15 - GIULIA [id number] [place] [address]Umd: Name:Self Pay (HP) (WP) 06/17/2017 KEENAN CALVIN Primary KEENAN CALVIN Hannah SHADIDOB: Insurance:MEDICAID SHADIDOB: [facility] [id number] Repository [place] Number: [place], [id number] [place], [place] [address]Muw: Date:2017-06-14 - [place] [address]Cja: [id number] (HP) Name:Medicaid [facility] ()Tel: (000) [address], [place] 000-[address] () [address]UQ: 06/17/2017 Secondary KEENAN CALVIN Hannah Insurance:SELF PAY SHADIDOB: Hospital [facility] [id number] Repository Number: ABCEffady AGUILERA Date:2017-06-14 - [place] [id number] [place] [address]Yxn: Name:Self Pay (HP) (WP)
== END ==
PROVIDERS: Family Provider Family Medicine; PCP Family Medicine; Referring Provider Obstetrics & Gynecology; Visit Provider Obstetrics & Gynecology
DX: O99.330 Smoking (tobacco) complicating pregnancy, unspecified trimester (principal); F12.90 Cannabis use, unspecified, uncomplicated; Z3A.00 Weeks of gestation of pregnancy not specified

== ENCOUNTER 2018-05-06 20:00 | Outpatient (CLI) | payer MEDICAID, SELFPAY ==
[2018-05-03 11:09] VITALS: BMI 32.1
[2018-05-06 20:47] VITALS: BMI 32.5
--- NOTE | 2018-05-06 20:48 | NURSING ---
waiting for amnisure results.
[2018-05-06 21:05] LABS: ROM Internal Control Test YES-OK TO RESULT pt. (Internal QC); ROM Patient Test Negative (Negative)
[2018-05-06] MEDS: Acetaminophen 500 MG Tablet 1000 MG PO (21:08)
--- NOTE | 2018-05-06 21:54 | OB.TRI.NOTE ---
- Problem List (1) 35 weeks gestation of Status: Acute (2) Headache Status: Acute Qualifiers: Headache chronicity pattern: unspecified pattern Intractability: not intractable History of Present Illness Date of Service: 05/06/18 Was patient seen by the physician?: Yes Reason For Visit: R/O LABOR Final ELDON: 06/10/18 Final ELDON Source: US <20 weeks Gestational age: 35 Weeks and 0 Days History of Present Illness: 23yo @ 35wga h/o prior LTCS with c/o headache, vision changes, contractions, leaking of fluid and decreased movement. No vaginal bleeding. Allergies acetaminophen [From Percocet] Allergy (Mild, Verified 05/06/18 20:50) Other amoxicillin [From Trimox] Allergy (Mild, Verified 05/06/18 20:50) Other cyclobenzaprine Allergy (Mild, Verified 05/06/18 20:50) Other oxycodone [From Percocet] Allergy (Mild, Verified 05/06/18 20:50) Other Sulfa (Sulfonamide Antibiotics) Allergy (Mild, Verified 05/06/18 20:50) Other - Pertinent Past Medical History Medical History: Past Medical History (Last Reviewed 05/03/18 @ 11:07 by Mary Ag) Anxiety and depression Bipolar disorder Surgical History: Past Surgical History (Last Reviewed 05/03/18 @ 11:07 by Mary Ag) delivery delivered H/O dilation and curettage H/O endoscopy Hx of cholecystectomy Ingrown toenail Laboratory Studies: Laboratory Tests 05/06/18 Range/Units 20:19 Vag Amniotic Fld Detect Negative (Negative) Physical Exam Vitals: avss General: Alert, Oriented x3, Cooperative, No apparent distress HEENT: Atraumatic, Normocephalic Cardiovascular: Regular rate, Regular Rhythm, Normal S1, Normal S2 Lungs: Normal air movement Abdomen: Soft, Non Tender, Non-Distended, Gravid Neurological: Deep Tendon Reflexes 2+/4 and Symmetrical, Neuro grossly intact, - - No clonus INSTRUMENTATION AND CONTROLS DESIGNER: Normal external genitalia Estimated gestational size: Appropriate for gestational size Cervix Dilation (cm): 0 - per RN T Eastep NST - FHR Rate Baby A Baseline: 130 Variability:: Moderate Accelerations:: 15 x 15 Decelerations:: None NST Reactive:: Yes FHR Category:: Category I Uterine Activity:: 0-1/10 min Impression/Plan 35wga with reactive NST, false labor -Headache resolved with Tylenol -Si/sx preeclampsia and kick counts reviewed -d/c home
== END 2018-05-06 22:00 | disposition home or self-care (01) ==
LOC: WPOUT 20:29 → WP 20:29
PROVIDERS: Family Provider Family Medicine; PCP Family Medicine; Referring Provider Obstetrics & Gynecology; Visit Provider Obstetrics & Gynecology
DX: O47.03 False labor before 37 completed weeks of gestation, third trimester (principal); O36.8130 Decreased fetal movements, third trimester, not applicable or unspecified; O34.211 Maternal care for low transverse scar from previous cesarean delivery; R51 Headache; Z3A.35 35 weeks gestation of pregnancy
CPT/HCPCS: 59025; 59050; 84112; 99218; G0378

== ENCOUNTER → 2018-05-17 16:00 | Outpatient (CLI) | payer MEDICAID, SELFPAY ==
[2018-05-17 12:03] VITALS: BMI 32.5
[2018-05-17 17:06] LABS: Amphetamine Urine VISTA NEGATIVE (<1000 ng/mL); Barbiturate Urine VISTA NEGATIVE (< 200 ng/mL); Benzodiazepine Urine VISTA NEGATIVE (< 200 ng/mL); Cocaine Urine VISTA NEGATIVE (< 300 ng/mL); Ecstacy Urine VISTA NEGATIVE (< 500 ng/mL); Methadone Urine VISTA NEGATIVE (< 300 ng/mL); PCP Urine VISTA NEGATIVE (< 25 ng/mL); THC Urine VISTA NEGATIVE (< 50 ng/mL); Vista UDS pH Range 6
== END ==
PROVIDERS: Family Provider Family Medicine; PCP Family Medicine; Referring Provider Obstetrics & Gynecology; Visit Provider Obstetrics & Gynecology
DX: Z34.90 Encounter for supervision of normal pregnancy, unspecified, unspecified trimester (principal); F12.90 Cannabis use, unspecified, uncomplicated
CPT/HCPCS: 80307; 87081

== ENCOUNTER 2018-06-03 09:40 | Inpatient (IN) | payer MEDICAID, SELFPAY ==
[2018-04-01 08:32] VITALS: BMI 31.2
[2018-05-31 11:18] VITALS: BMI 32.5
[2018-06-03] VITALS (19 sets, daily range): BP systolic 91–108; BP diastolic 41–63; PULSE 68–88; RESP 12–19; TEMP 35.9–36.6; O2SAT 93–99; BMI 32.5
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
[2018-06-03] MEDS: Lactated Ringers 1,000 ML 999 ML IV (10:10)
[2018-06-03 10:27] LABS: Hematocrit 34.6 % (37-47); Hemoglobin 11.1 g/dl (12.0-15.0); Mean Corp Hgb Conc 32.1 g/gl (32-36); Mean Corpuscular Hgb 27.5 pg (27.0-32.0); Mean Corpuscular Volume 85.6 fL (81-99); Mean Platelet Vol. 11.6 fl (6.2-12.0); Platelet Count 166 K/mm3 (150-450); RBC Distribution Width CV 15.2 % (11.6-14.6); RBC Distribution Width SD 46.4 fl (35.1-43.9); Red Blood Count 4.04 M/mm3 (4.2-5.4); White Blood Count 13.7 K/mm3 (4.4-11.0)
[2018-06-03 10:28] LABS: Differential Indicated MANUAL DIFF; POSITIVE COUNT YES; POSITIVE DIFFERENTIAL NO; POSITIVE MORPHOLOGY YES
[2018-06-03 10:41] LABS: Amphetamine Urine VISTA NEGATIVE (<1000 ng/mL); Barbiturate Urine VISTA NEGATIVE (< 200 ng/mL); Benzodiazepine Urine VISTA NEGATIVE (< 200 ng/mL); Cocaine Urine VISTA NEGATIVE (< 300 ng/mL); Ecstacy Urine VISTA NEGATIVE (< 500 ng/mL); Methadone Urine VISTA NEGATIVE (< 300 ng/mL); PCP Urine VISTA NEGATIVE (< 25 ng/mL); THC Urine VISTA NEGATIVE (< 50 ng/mL); Vista UDS pH Range 7
[2018-06-03] MEDS: Lactated Ringers 1,000 ML 150 ML IV (10:50)
[2018-06-03] MEDS: Sodium Citrate/Citric Acid 30 ML UDC PO (11:11)
[2018-06-03 11:14] LABS: Eosinophil 1 % (0-5); Lymphocyte 11 % (19-41); Monocyte 12 % (0-10); Neutrophil-Band 1 % (0-5); Neutrophil-Segmented 75 % (47-70); Platelet Estimate ADEQUATE (ADEQ); Red Cell Morphology NORM C+C NORMAL (NORM C&C); Total Cells Counted 100 (MANUAL DIFF)
[2018-06-03 11:15] LABS: Absolute Neutrophil Count 10.4 X10^3/uL (2.0-7.7)
[2018-06-03] MEDS: Cefazolin 2 GM in 0.9% Normal Saline 100 ML IV (11:51)
--- NOTE | 2018-06-03 12:01 | FALS_PTH ---
PATIENT: KEENAN SHERMAN LOC: [facility] U#:[id number] AGE/SX: 23/F ROOM: WP004 RE06/03/[address]: Dr. Chacha Schwarz MD : 1995 BED: 1 DIS: 06/05/2018 SPEC #: [id number] RECD: 06/03/18 14:16 STATUS: REHANA REXimena #: [id number] BON: 06/03/18 12:[address]: Chacha Schwarz DEPT: SURGICAL PATHOLOGY RECD BY: Je Park ENTERED: 06/03/18 14:34 SP TYPE: FALL TUBES OTHR DR: Dr. Indu Lima, DO Tissues: Fallopian tube Procedures: Surgery Specimen Level II HEADER OPERATION: Tubal ligation PRE-OP DIAGNOSIS: Desired sterilization TISSUE SUBMITTED: Fallopian tubes MICROSCOPIC DIAGNOSIS Bilateral fallopian tubes, tubal ligation: Completely transected segments of bilateral fallopian tubes, no pathologic diagnosis. ALEXEY:jarred 06/04/18 MICROSCOPIC DESCRIPTION Slides are reviewed. GROSS DESCRIPTION Received is one container labeled with the patient's name and designated bilateral fallopian tubes. The specimen consists of two tubular pieces of reyna soft tissue. The fallopian tubes are not identified as right or left. A suture is noted outside the container. One of the segments is inked black and it measures 3 cm in length and 0.5 cm in diameter. The other segment measures 2.8 cm in length and 0.5 cm in diameter. The entire specimen is submitted in one cassette. Both pieces will be sectioned at the time of embedding. Per requisition, it says suture in right tube, however, the suture was noted only outside the container, not in the fallopian tube. / ALEXEY:jarred 06/03/18 TC: 4 [facility]: [id number] x2
[2018-06-03] MEDS: Oxytocin 30 units/NS 500 ml 30 UNITS/500 ML IV.SOLN 167 UNITS IV (12:02)
[2018-06-03] MEDS: Ondansetron 4 MG/2 ML Vial IV (12:05)
[2018-06-03] MEDS: Ketorolac 30 MG/ML Syringe IV ×3 (12:30→23:49)
[2018-06-03] MEDS: Lactated Ringers 1,000 ML 100 ML IV ×2 (12:45→22:40)
[2018-06-03 13:08] LABS: Chlamydia Trachomatis by PCR Negative (Negative); Neisserai gonorrhoeae by PCR Negative (Negative); Probe Check PASS; Sample Adequacy Control PASS; Specimen Processing Control PASS
[2018-06-03 14:15] LABS: Pathology Specimen OB SEE PATHOLOGY REPORT
[2018-06-03] MEDS: Nalbuphine 10 MG/ML Ampul 5 MG IV ×2 (16:10→19:16)
[2018-06-03] MEDS: 0.9% Saline Lock 10 ML Syringe IV ×3 (16:11→19:17)
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
[2018-06-04] VITALS (12 sets, daily range): BP systolic 91–123; BP diastolic 43–54; PULSE 73–91; RESP 16–18; TEMP 36.4–36.6; O2SAT 94–100
[2018-06-04] MEDS: DiphenhydrAMINE 25 MG Capsule PO (01:29)
[2018-06-04 05:09] LABS: Hematocrit 30.5 % (37-47); Hemoglobin 9.7 g/dl (12.0-15.0); Mean Corp Hgb Conc 31.8 g/gl (32-36); Mean Corpuscular Hgb 27.6 pg (27.0-32.0); Mean Corpuscular Volume 86.9 fL (81-99); Mean Platelet Vol. 11.7 fl (6.2-12.0); Platelet Count 139 K/mm3 (150-450); RBC Distribution Width SD 46.2 fl (35.1-43.9); Red Blood Count 3.51 M/mm3 (4.2-5.4); White Blood Count 12.2 K/mm3 (4.4-11.0)
[2018-06-04 05:17] LABS: Scan Indicated on CBC? Y/N NO
[2018-06-04] MEDS: Ketorolac 30 MG/ML Syringe IV ×3 (06:32→17:54)
[2018-06-04] MEDS: 0.9% Saline Lock 10 ML Syringe IV ×3 (07:18→17:54)
--- NOTE | 2018-06-04 11:07 | PCM.PN.OB ---
Subjective: No CP, SOB. States pain controlled. Has been up in chair. - Physical Exam General: Alert, Oriented x3 Abdomen: Soft, Non Tender, - - FF below U. Dressing dry and intact. Minimal pain with exam. Vital Signs Temp Pulse Resp BP Pulse Ox 97.8 F 78 17 91/47 L 96 06/04/18 08:00 06/04/18 08:00 06/04/18 09:00 06/04/18 08:00 06/04/18 09:00 Oxygen Flow Rate (L/min) 1 Oxygen Delivery Method Room Air Weight: 172 lb 6.424 oz Body Mass Index (BMI) 32.5 Intake and Output for Last 24 Hours 06/02/18 06/03/18 06/04/18 23:59 23:59 23:59 Intake Total 3509 / 3509 1425 / 1425 Output Total 850 / 850 1800 / 1800 Balance 2659 / 2659 -375 / -375 Laboratory Tests Past 24 Hrs 06/03/18 06/03/18 06/03/18 10:00 10:00 10:00 WBC RBC Hgb Hct MCV MCH MCHC RDW RDW Differential Plt Count MPV Absolute Neuts (auto) 10.4 H Absolute Lymphs (auto) 1.50 Total Counted 100 Neutrophils % (Manual) 75 H Band Neutrophils % 1 Lymphocytes % (Manual) 11 L Monocytes % (Manual) 12 H Eosinophils % (Manual) 1 Diff Path Review May foll Platelet Estimate ADEQUATE RBC Morphology NORM C+C Chlam trachomat DNA PCR Negative N.gonorrhoeae DNA (PCR) Negative Blood Type A POSITIVE Antibody Screen NEGATIVE 06/04/18 05:00 WBC 12.2 H RBC 3.51 L Hgb 9.7 L Hct 30.5 L MCV 86.9 MCH 27.6 MCHC 31.8 L RDW 15.0 H RDW Differential 46.2 H Plt Count 139 L MPV 11.7 Absolute Neuts (auto) Absolute Lymphs (auto) Total Counted Neutrophils % (Manual) Band Neutrophils % Lymphocytes % (Manual) Monocytes % (Manual) Eosinophils % (Manual) Diff Path Review Platelet Estimate RBC Morphology Chlam trachomat DNA PCR N.gonorrhoeae DNA (PCR) Blood Type Antibody Screen Medical Necessity - Tobacco Use Smoking Status: Current every day smoker Assessment/Plan All Active Problems (Last Reviewed 05/31/18 @ 11:18 by Mary Cardoso Headache (Acute) Supervision of high risk due to social problems (Acute) Marijuana use (Acute) Tobacco smoking affecting (Acute) History of delivery affecting (Acute) (Acute) 35 weeks gestation of (Resolved) False labor (Resolved) LTRCS BTL POD#1: Routine care. . Pain controlled
[2018-06-04 13:22] LABS: Pathologist Review Reviewed
[2018-06-05] MEDS: Ketorolac 30 MG/ML Syringe IV ×2 (00:21→06:38)
[2018-06-05] MEDS: 0.9% Saline Lock 10 ML Syringe IV (00:21)
[2018-06-05 02:05] VITALS: BP 108/55; PULSE 93; RESP 16; TEMP 36.5; O2SAT 97
[2018-06-05 10:00] VITALS: BP 114/61; PULSE 74; RESP 18; TEMP 36.6
[2018-06-05] MEDS: Senna/Docusate Sodium 1 Tablet PO (10:35)
--- NOTE | 2018-06-05 12:22 | PCM.PN.OB ---
Subjective: doing well no complaints pain controlled no CP SOB N V ambulating well tolerating po lochia moderate, going well - Physical Exam General: Alert, Oriented x3 Vital Signs Temp Pulse Resp BP Pulse Ox 97.7 F L 93 16 108/55 L 97 06/05/18 02:05 06/05/18 02:05 06/05/18 02:05 06/05/18 02:05 06/05/18 02:05 Oxygen Flow Rate (L/min) 1 Oxygen Delivery Method Room Air Weight: 172 lb 6.424 oz Body Mass Index (BMI) 32.5 Intake and Output for Last 24 Hours 06/03/18 06/04/18 06/05/18 23:59 23:59 23:59 Intake Total 3509 / 3509 1825 / 1825 Output Total 850 / 850 2650 / 2650 Balance 2659 / 2659 -825 / -825 Laboratory Tests Past 24 Hrs 06/03/18 10:00 Diff Path Review Reviewed Medical Necessity - Tobacco Use Smoking Status: Current every day smoker Assessment/Plan All Active Problems (Last Reviewed 05/31/18 @ 11:18 by Mary Ag) Headache (Acute) Supervision of high risk due to social problems (Acute) Marijuana use (Acute) Tobacco smoking affecting (Acute) History of delivery affecting (Acute) (Acute) 35 weeks gestation of (Resolved) False labor (Resolved) s/p LTCS PPD # 2 1. routine post care 2. breast feeding- support given 3. rh positive 4. rubella immune
--- NOTE | 2018-06-05 12:24 | DCINST_ITS ---
Discharge Diet: No Restrictions Discharge Activity: May Not Drive - for 2 weeks, May not drive while taking narcotic pain medications., May Shower, May Take a Tub Bath - in 7 days May resume sexual activity in: 4-6 weeks Lifting Restrictions: 20 pounds Additional Activity Instructions:: Nothing in the vagina for 4-6 weeks. You may return to work/school in 6 weeks. Call your doctor if your incision/area has: Continuous Slow Oozing, Sudden Increased Bleeding, Increased Pain/ Swelling, Increased Redness, Foul Smelling Discharge Call your doctor if you observe: Fever of 101 or Higher, Using more than one pad per hour - for 2 hours Suture Line Care: Avoid Pulling/Pushing, Avoid Pinching/Bending Cleanse incision/area with: Keep Dressing Clean & Dry Additional Instructions: If you experience any of the following, contact your healthcare provider. * Bleeding that soaks a pad every hour for 2 hours * Fever 100.4 or higher * Unrelieved incision or abdominal pain * Swelling, redness, discharge or bleeding from your incision or episiotomy site * Your incision begins to separate * Problems urinating (including inability to urinate or burning while urinating). * Visual changes * Severe headache * Flu-like symptoms * Pain or redness in one of both of your breasts * Pain, warmth, tenderness or swelling in your legs, especially the calf area * Frequent nausea and vomiting * Symptoms of depression or anxiety If you experience any of the following, call 911 or go to the nearest Emergency Room. * Chest pain * Problems breathing * Seizure activity * Partial or complete paralysis of a body part, slurred speech, weakness or drooping of the face, or a sudden inability to walk or hold your balance Allergies/Adverse Reactions: Allergies amoxicillin [From Trimox] Allergy (Mild, Verified 05/31/18 11:17) Other cyclobenzaprine Allergy (Mild, Verified 05/31/18 11:17) Other oxycodone [From Percocet] Allergy (Mild, Verified 05/31/18 11:17) Other Sulfa (Sulfonamide Antibiotics) Allergy (Mild, Verified 05/31/18 11:17) Other Medications to take at Discharge vitamin,calcium,vrkmnunn-shhu-fwhwy acid tablet 1 tab PO DAILY PRN 01/06/18 Ondansetron [Zofran Odt] 4 mg PO Q8H PRN PRN 05/06/18 Lidocaine 1 patch TOPICAL DAILY 06/03/18 Codeine Sulfate 60 mg PO 4X/DAY PRN PRN 5 Days #28 tablet 06/05/18 Naproxen [Naprosyn] 250 - 500 mg PO Q8H PRN PRN #30 tablet 06/05/18 The following prescriptions were given: Naproxen [Naprosyn] 250 - 500 mg PO Q8H PRN PRN #30 tablet PRN Reason: MILD PAIN Codeine Sulfate 60 mg PO 4X/DAY PRN PRN 5 Days #28 tablet PRN Reason: Pain Follow-Up: Call to make an appointment with your doctor for an incision check in 1-2 weeks. You will also need a 6 week post- follow up appointment. Test results from this visit will be discussed in further detail at your follow- up appointment, if applicable. Please Follow Up With: Chacha Schwarz MD - Call to make an appointment for an incision check in [phone] When: You will need a post- check in 6 weeks. Primary Care Physician: Indu Thapa DO [Primary Care Provider] -
--- NOTE | 2018-06-05 15:23 | NURSING ---
[id number] Mother states she wants to go home today and feels able to care for herself and her baby. Discharged with via wheelchair to car.
== END 2018-06-05 13:30 | disposition home or self-care (01) | DRG 540 ==
PROVIDERS: Admitting Provider Obstetrics & Gynecology; Family Provider Family Medicine; PCP Family Medicine; Referring Provider Obstetrics & Gynecology; Visit Provider Obstetrics & Gynecology
PROC: 10D00Z1 Extraction of Products of Conception, Low, Open Approach (ICD-10-PCS; CPT 59514; principal; 2018-06-03 11:45)
DX: O34.211 Maternal care for low transverse scar from previous cesarean delivery (principal); Z30.2 Encounter for sterilization; O99.324 Drug use complicating childbirth; F12.90 Cannabis use, unspecified, uncomplicated; O99.344 Other mental disorders complicating childbirth; F31.9 Bipolar disorder, unspecified; O99.334 Smoking (tobacco) complicating childbirth; F17.210 Nicotine dependence, cigarettes, uncomplicated; Z3A.39 39 weeks gestation of pregnancy; Z37.0 Single live birth
CPT/HCPCS: 80307; 85025; 85027; 86850; 86900; 87491; 87591; 88302; 99218; J7120; A4216; G0378; J2405

== ENCOUNTER 2019-02-07 15:26 | Emergency (ER) | payer MEDICAID, SELFPAY ==
[2018-06-14 11:36] VITALS: BMI 32.5
[2019-02-07 15:28] VITALS: BP 114/75; PULSE 111; RESP 14; TEMP 36.9; O2SAT 97; BMI 29.3
--- NOTE | 2019-02-07 15:36 | ED.DCSUM_ITS ---
History of Present Illness Chief Complaint: Chest Other Informant: Patient Onset: Yesterday Narrative: Right sided rib pain after coughing yesterday. Nonproductive cough for 2 days. No fevers. Tobacco history. No oral contraceptives. No trauma. Denies dyspnea or wheezing. Use Tylenol without relief. History of gastric ulcers. States had a cholecystectomy in the past. No recent travel, surgeries, or immobilizations. No history of PE or DVT. Pain worse with palpation or coughing. Denies any vomiting or diarrhea. History of tubal ligation. Prior similar symptoms: Yes Past Medical History - Allergies and Home Meds Allergies/Adverse Reactions: Allergies amoxicillin [From Trimox] Allergy (Mild, Verified 02/07/19 15:30) Other cyclobenzaprine Allergy (Mild, Verified 02/07/19 15:30) Other oxycodone [From Percocet] Allergy (Mild, Verified 02/07/19 15:30) Other Sulfa (Sulfonamide Antibiotics) Allergy (Mild, Verified 02/07/19 15:30) Other Primary Care Physician: Indu Lima DO [Primary Care Provider] - Smoking Status: Current every day smoker Review of Systems General: Denies: Chills, Fever, Sweats Eyes: Denies: Visual changes - bilaterally, Diplopia ENT: Denies: Rhinorrhea, Sore throat Cardiovascular: Reports: - - Rib pain. Denies: Chest pain, Palpitations Respiratory: Reports: Cough. Denies: Dyspnea, Dyspnea on exertion Gastrointestinal: Denies: Abdominal pain, Nausea, Vomiting, Diarrhea, Melena, Hematochezia Genitourinary: Denies: Dysuria, Hematuria, Frequency Musculoskeletal: Denies: Back pain, Extremity Pain Skin: Denies: Rash, Wounds Neurological: Denies: Headache, Weakness, Numbness Physical Exam Vital Signs/Narrative: Vital Signs Temp Pulse Resp BP Pulse Ox 02/07/19 15:28 98.4 F 111 H 14 114/75 97 Inital Vital Signs reviewed: Yes General: Well nourished, Well developed, No Acute Distress Head: Normocephalic, Atraumatic Eyes: Perrl, EOMI ENT: Moist mucous membranes, No rhinorrhea Neck: Supple, Nontender Cardiovascular: Regular rate, Regular rhythm, No murmurs, Tachycardia Respiratory: No distress, CTA bilaterally, Chest tenderness, - - Tenderness along right lateral lower ribs with no crepitus, no ecchymosis or rash. Symmetric breath sounds. Abdomen: Soft, Nontender, Nondistended, Normal bowel sounds Back: Nontender, Normal Inspection Extremities: Nontender, No edema Skin: Normal color, No rash Neurological: Alert, Oriented x3, Cranial nerves II-XII grossly intact, Normal Strength, Normal Sensation Psychological: Normal affect, Normal Mood Diagnostic/Tx/Re-eval Clinical Impression(s) from Imaging Studies Chest X-Ray 02/07/19 15:40 IMPRESSION: Normal x-ray examination of the chest. Electronically Signed: Jasvir Nichols, at 15:59 EDT , Service support , - Medical Decision Making Patient nontoxic, rib tenderness with palpation. With her cough chest x-ray obtained shows no acute process. She was slightly tachycardic, denies any exertional dyspnea or dyspnea for concerns for PE. Slightly secondary to pain. Due to her gastric ulcer history avoid NSAIDs, she is tolerated Lindale which was given. Oaars report checked was negative. Short prescription for pain control. Discussed adjunct therapy for cough. Will write antitussives. She will follow-up as an outpatient. All questions answered. ED Disposition - Plan for ED Patient: Disposition: Home or Assisted Living Diagnosis: Upper respiratory infection, Rib sprain Instructions: URI, Viral, No Abx (Adult) Prescriptions: Hydrocodone Bitart/Apap 5-325 [Lindale 5MG-325MG] 1 tablet PO Q6H PRN PRN 3 Days #10 tablet PRN Reason: Pain Benzonatate [Tessalon Perle] 200 mg PO TID PRN PRN #20 capsule PRN Reason: Cough Referrals: Indu Lima DO [Primary Care Provider] - 5-7 Days
--- NOTE | 2019-02-07 15:40 | RAD_ITS ---
STUDY: X-RAY CHEST REASON FOR EXAM: Female, 24 years old. 4 week history of cough. TECHNIQUE: PA and lateral views of the chest. COMPARISON: None. FINDINGS: The lungs are clear and expanded. There is no demonstrated pleural abnormality. Normal size heart. Normal mediastinum and ophelia. Normal visualized pulmonary arteries. Normal visualized aortic arch and descending thoracic aorta. Normal visualized thoracic spine. Normal visualized ribs, clavicles, and shoulders. There is no demonstrated abnormality of the visualized soft tissue structures of the upper abdomen. RAD/Chest PA and Lateral IMPRESSION: Normal x-ray examination of the chest. Electronically Signed: Jasvir Nichols, at 15:59 EDT , Service support ,
[2019-02-07 15:54] VITALS: BP 101/68; PULSE 106; RESP 18; O2SAT 97
[2019-02-07] MEDS: HYDROcodone Bitartrate/Apap 5/325 Tablet PO (16:05)
[2019-02-07 16:39] VITALS: PULSE 91; RESP 17; O2SAT 96
--- NOTE | 2019-02-07 16:39 | ED.RN ---
DISCHARGE INSTRUCTIONS GIVEN TO AND REVIEWED WITH PATIENT, PATIENT DENIES QUESTIONS OR CONCERNS AND VOICES UNDERSTANDING OF DISCHARGE INSTRUCTIONS. PT AMBULATES OUT OF ROOM WITHOUT DIFFICULTY.
== END 2019-02-07 16:40 | disposition home or self-care (01) ==
PROVIDERS: Emergency Provider Emergency Medicine; Family Provider Family Medicine; PCP Family Medicine
DX: J06.9 Acute upper respiratory infection, unspecified (principal); S23.41XA Sprain of ribs, initial encounter; X58.XXXA Exposure to other specified factors, initial encounter; Y93.9 Activity, unspecified; F17.200 Nicotine dependence, unspecified, uncomplicated
CPT/HCPCS: 71046; 99283

== ENCOUNTER 2019-07-25 14:36 | Emergency (ER) | payer MEDICAID, SELFPAY ==
[2019-07-25 14:36] VITALS: BP 105/68; PULSE 84; RESP 16; TEMP 35.9; O2SAT 99
[2019-07-25 14:37] VITALS: BP 105/68; PULSE 84; RESP 16; TEMP 35.9; O2SAT 99; BMI 29.7
--- NOTE | 2019-07-25 14:48 | EKG12_ITS ---
Test Reason : PALPS Blood Pressure : / mmHG Vent. Rate : 083 BPM Atrial Rate : 083 BPM P-R Int : 148 ms QRS Dur : 086 ms QT Int : 362 ms P-R-T Axes : 027 065 046 degrees QTc Int : 425 ms Normal sinus rhythm Normal ECG Confirmed by CHEYANNE MON MD ([id number]), editor producer KEITH KEYES ([id number]) on 07/27/2019 8:48:11 AM Referred By: LEÓN Confirmed By:CHEYANNE MON MD
--- NOTE | 2019-07-25 14:48 | ED.VIS.GEN ---
History of Present Illness Chief Complaint: Palpitations Informant: Patient Onset: Yesterday Timing: Intermittent Current Severity: Mild Maximum Severity: Mild Narrative: Present secondary to palpitations. She states she has had problems with low blood pressure since January 2019. She is scheduled to see Dr. Infante on August 15 for further evaluation. She does keep a log of her blood pressures. Last evening she noted her blood pressure to be 95/78 with a heart rate of 131. This morning she had blood pressure 92/77 with a heart rate of 136. Patient states that other times she will check her vital signs and blood pressure will be low but she will not necessarily have tachycardia. She does not feel short of breath or have chest pain. She states she felt mildly lightheaded. She does report having a hole in her heart. Patient reports 2 or 3 drinks with caffeine a day typically, no caffeine today. She reports occasional marijuana use but states she has not used this recently. She is a smoker. - Past Medical History (1) Bipolar disorder Status: Chronic (2) GERD (gastroesophageal reflux disease) Status: Chronic (3) Marijuana use Status: Chronic Comment: random tox, encouraged cessation; 03/08 denies using Past Medical History - Allergies and Home Meds Allergies/Adverse Reactions: Allergies amoxicillin [From Trimox] Allergy (Mild, Verified 02/07/19 15:30) Other cyclobenzaprine Allergy (Mild, Verified 02/07/19 15:30) Other oxycodone [From Percocet] Allergy (Mild, Verified 02/07/19 15:30) Other Sulfa (Sulfonamide Antibiotics) Allergy (Mild, Verified 02/07/19 15:30) Other Primary Care Physician: Indu Lima DO [Primary Care Provider] - Prior records reviewed: Yes Lives: With Family Smoking Status: Current every day smoker Review of Systems General: Denies: Chills, Fever Eyes: Denies: Visual changes - bilaterally ENT: Denies: Bilateral ear pain Cardiovascular: Reports: Palpitations, Heart racing. Denies: Chest pain Respiratory: Denies: Dyspnea, Cough Gastrointestinal: Denies: Abdominal pain, Nausea, Vomiting, Diarrhea Genitourinary: Denies: Dysuria Musculoskeletal: Denies: Swelling, Extremity Pain Skin: Denies: Rash Neurological: Denies: Headache Hematologic: Denies: Easy bruising, Easy bleeding Allergy: Denies: Uticaria Physical Exam Vital Signs/Narrative: Vital Signs Temp Pulse Resp BP Pulse Ox 07/25/19 14:37 96.7 F L 84 16 105/68 99 07/25/19 14:36 96.7 F L 84 16 105/68 99 Inital Vital Signs reviewed: Yes General: Well nourished, Well developed Head: Normocephalic ENT: Moist mucous membranes Neck: Supple Cardiovascular: Regular rate, Regular rhythm Respiratory: No distress, CTA bilaterally Abdomen: Soft, Nontender Extremities: Nontender Skin: Normal color Neurological: Alert, Oriented x3 Psychological: Normal affect Diagnostic/Tx/Re-eval Laboratory Results 07/25/19 07/25/19 07/25/19 15:09 15:09 15:09 WBC 7.3 RBC 4.99 Hgb 14.0 Hct 43.4 MCV 87.0 MCH 28.1 MCHC 32.3 RDW Std Deviation 41.4 RDW Coeff of Isidoro 13.1 Plt Count 234 MPV 10.3 Immature Gran % (Auto) 0.500 Neut % (Auto) 48.8 Lymph % (Auto) 36.6 [place] % (Auto) 9.7 Eos % (Auto) 4.0 Baso % (Auto) 0.4 Absolute Neuts (auto) 3.6 Absolute Lymphs (auto) 2.69 Nucleated RBC % 0 Sodium 142 Potassium 3.6 Chloride 110 H Carbon Dioxide 28.0 Anion Gap 4 L BUN 12 Creatinine 0.72 Estim Creat Clear Calc 125.77 Est GFR (MDRD) Af Amer 126 Est GFR (MDRD) Non-Af 104 BUN/Creatinine Ratio 16.6 Glucose 109 H Calcium 8.7 TSH 1.92 Serum , Qual NEGATIVE - EKG Initial EKG Interpretation: Sinus Rhythm - Sinus 83 with no acute ischemia. Normal intervals noted. - Medical Decision Making Vital signs stable throughout ED stay. No evidence of arrhythmia. I spoke with Dr. Teague. He would prefer to wait and have the patient seen in the office and review records from [facility] before having another Holter monitor performed. He instructed her to increase salt and fluids. Patient will follow up on the fifth as scheduled. ED Disposition - Plan for ED Patient: Disposition: Home or Assisted Living Diagnosis: Palpitations Instructions: ED Palpitations Referrals: Indu Lima DO [Primary Care Provider] - Robb Infante MD [STAFF PHYSICIAN] - Keep Tracie appointment
[2019-07-25 15:49] LABS: Absolute Lymphocyte Count 2.69 X10^3/uL (0.83-4.51); Absolute Neutrophil Count 3.6 X10^3/uL (2.0-7.7); Basophil# 0.03 X10^3/uL; Basophil% 0.4 % (0-1); Eosinophil# 0.29 X10^3/uL; Hematocrit 43.4 % (37-47); Lymphocyte # 2.69 X10^3/ul (4.0); Lymphocyte % 36.6 % (19-41); Mean Corp Hgb Conc 32.3 g/dL (32-36); Mean Corpuscular Hgb 28.1 pg (27.0-32.0); Mean Platelet Vol. 10.3 fl (6.2-12.0); Monocyte# 0.71 X10^3/uL; Monocyte% 9.7 % (0-10); NRBC Flagged by Analyzer 0 % (0-5); Neutrophil # 3.58 X10^3/uL (2.7-7.7); Neutrophil % 48.8 % (47-70); Platelet Count 234 K/mm3 (150-450); RBC Distribution Width CV 13.1 % (11.6-14.6); RBC Distribution Width SD 41.4 fl (35.1-43.9); Red Blood Count 4.99 M/mm3 (4.2-5.4); White Blood Count 7.3 K/mm3 (4.4-11.0)
[2019-07-25 15:58] LABS: Internal QC Validated? YES +Cl - CLEAR BKGD; Pregnancy, Serum, hCG Quali. NEGATIVE Negative
[2019-07-25 16:09] LABS: Anion Gap 4 (5-15); BUN 12 mg/dL (7-18); BUN/Creat Ratio 16.6 RATIO (10-20); Calcium,Total 8.7 mg/dL (8.5-10.1); Chloride 110 mmol/L (98-107); Creatinine, Serum 0.72 mg/dL (0.55-1.02); EST Glomerular Filtration Rate 104 mL/min (>60); Est Glom Filt Rate - Afr Amer 126 mL/min (>60); Estimated Creatinine Clearance 125.77 ml/min; Glucose 109 mg/dL (74-106); Potassium 3.6 mmol/L (3.5-5.1); Sodium Level 142 mmol/L (136-145); Thyroid Stim Hormone (TSH) 1.92 uIU/mL (0.358-3.74)
[2019-07-25 16:36] VITALS: BP 113/72; PULSE 86; RESP 19; O2SAT 97
== END 2019-07-25 16:50 | disposition home or self-care (01) ==
PROVIDERS: Emergency Provider Emergency Medicine; PCP Family Medicine
DX: R00.2 Palpitations (principal); F31.9 Bipolar disorder, unspecified; K21.9 Gastro-esophageal reflux disease without esophagitis; F17.200 Nicotine dependence, unspecified, uncomplicated; Z88.0 Allergy status to penicillin; Z88.2 Allergy status to sulfonamides; Z88.5 Allergy status to narcotic agent
CPT/HCPCS: 80048; 84443; 84703; 85025; 93005; 99284; A4216

== ENCOUNTER 2019-11-08 15:15 | Emergency (ER) | payer MEDICAID, SELFPAY ==
[2019-08-16 11:22] VITALS: BMI 29.7
[2019-11-08 15:16] VITALS: BP 145/84; PULSE 105; RESP 18; TEMP 36.6; O2SAT 97; BMI 30.5
--- NOTE | 2019-11-08 15:41 | ED.VIS.GEN ---
History of Present Illness Chief Complaint: General Illness Informant: Patient Narrative: Patient is a 24-year-old female who presents to the emergency department for sore throat, cough, congestion, diarrhea and fever. Her daughter is being seen for the same thing. She has had symptoms over the past 10 to 14 days. Her daughter did have a coronavirus test last week which was negative. Her temperature has been up to 100.5 that she has been taking Tylenol home for. She is been having around 4 episodes of diarrhea a day. She has not had any episodes of vomiting. No abdominal pain. No chest pain or shortness of breath. No known sick contacts. She denies any urinary symptoms. She has not had any rashes. She has had a mild headache. No neck stiffness. She is a current every day smoker. No recent travel or antibiotic use. Past Medical History - Allergies and Home Meds Allergies/Adverse Reactions: Allergies amoxicillin [From Trimox] Allergy (Mild, Verified 11/08/19 15:16) Other cyclobenzaprine Allergy (Mild, Verified 11/08/19 15:16) Other oxycodone [From Percocet] Allergy (Mild, Verified 11/08/19 15:16) Other Sulfa (Sulfonamide Antibiotics) Allergy (Mild, Verified 11/08/19 15:16) Other morphine Allergy (Verified 11/08/19 15:16) [facility]: Indu Lima DO [Primary Care Provider] - 3-5 Days Prior records reviewed: Yes Past Medical History: - - Hole in her heart, hypotension on midodrine Smoking Status: Current every day smoker Drugs: None Review of Systems All systems negative except as indicated General: Reports: Fever. Denies: Sweats Eyes: Denies: Visual changes - bilaterally, Diplopia ENT: Reports: Rhinorrhea, Sore throat. Denies: Bilateral ear pain Cardiovascular: Denies: Chest pain, Palpitations Respiratory: Reports: Cough. Denies: Dyspnea, Dyspnea on exertion Gastrointestinal: Reports: Abdominal pain, Nausea, Diarrhea. Denies: Vomiting, Melena, Hematochezia Genitourinary: Denies: Dysuria, Hematuria, Frequency Musculoskeletal: Denies: Back pain, Extremity Pain Skin: Denies: Rash, Wounds Neurological: Reports: Headache. Denies: Weakness, Numbness Physical Exam Vital Signs/Narrative: Vital Signs Temp Pulse Resp BP Pulse Ox 11/08/19 15:16 97.8 F 105 H 18 145/84 H 97 Inital Vital Signs reviewed: Yes General: Well nourished, Well developed, No Acute Distress Head: Normocephalic, Atraumatic Eyes: Perrl, EOMI ENT: Moist mucous membranes, No rhinorrhea, TM's clear Neck: Supple, Nontender Cardiovascular: Regular rate, Regular rhythm, No murmurs Respiratory: No distress, CTA bilaterally, Chest nontender Abdomen: Soft, Nontender, Nondistended, Normal bowel sounds Back: Nontender, Normal Inspection Extremities: Nontender, No edema Skin: Normal color, No rash Neurological: Alert, Oriented x3, Cranial nerves II-XII grossly intact, Normal Strength, Normal Sensation Psychological: Normal affect, Normal Mood Diagnostic/Tx/Re-eval - Medical Decision Making Patient presents to the emergency department for multiple complaints. This does seem like a viral infection given the sore throat, cough, diarrhea. Will test for coronavirus. Also test for strep. Otherwise patient is nontoxic-appearing. She does appear well-hydrated. Vital signs within normal limits. Rapid strep test is negative. Did not cough throughout entire ED stay. Appears well-hydrated. Appears nontoxic. Coronavirus test is pending. They are to self isolate until results are back. Otherwise she needs a follow-up with her PCP. Warning signs and symptoms for which to return to the emerge department including any chest pain, shortness of breath, inability to keep down liquids are reviewed. She understands and are agreeable with this plan. ED Disposition - Plan for ED Patient: Disposition: Home or Assisted Living Diagnosis: Diarrhea, Fever, Sore throat, Cough Instructions: ED Fever Control (Adult), ED URI Viral, ED Vomiting and Diarrhea Nonspecific Adult Referrals: Indu Lima DO [Primary Care Provider] - 3-5 Days
[2019-11-08 17:13] LABS: Probe Check PASS; Specimen Processing Control PASS
== END 2019-11-08 16:58 | disposition home or self-care (01) ==
PROVIDERS: Emergency Provider Emergency Medicine; PCP Family Medicine
DX: J02.9 Acute pharyngitis, unspecified (principal); R50.9 Fever, unspecified; R05 Cough; R19.7 Diarrhea, unspecified; R51 Headache; I95.9 Hypotension, unspecified; F17.200 Nicotine dependence, unspecified, uncomplicated; Z79.899 Other long term (current) drug therapy
CPT/HCPCS: 87635; 87880; 94799; 99282; U0003